=== PATIENT | female | born 1935 | race Caucasian/White ===

== ENCOUNTER 2019-11-22 12:26 | Inpatient (IN) | payer OTHER ==
[2019-11-22 12:52] VITALS: BMI 28.3
--- NOTE | 2019-11-22 13:12 | PDOC ---
History of Present Illness - General Chief Complaint: Injury Stated Complaint: INJURY Time Seen by Provider: 11/22/19 13:05 History Source: Patient Exam Limitations: No Limitations - History of Present Illness Initial Comments: HPI: 84 y/o F on aspirin coming in via EMS from a senior care home s/p fall. According to the patient she was in her home ambulating with her walker and trying to kill a ramirez. The walker got caught and fell over, and she fell on her R. hip. She was able to sit up and call for help. Patient denies that she hit her head, or had LOC. Denies proceeding chest pain, dizziness, or SOB. ROS: (+) Right hip pain (-): Chest pain, palpitations, SOB, headache, blurry vision, neck pain, bruising PMH: NIDDM, HTN Allergies: Phenobarbital PE: General: Patient is awake, alert, in no acute distress Head: No signs of trauma, normocephalic, atraumatic Heart: RRR, capillary reflex < 3 seconds bilaterally, dorsalis pedis pulses 1+ bilaterally. Lungs: No distress, speaks in full sentences, bilateral crackles at lung bases Neuro: Sensation intact in bilateral lower extremities. Extremities: Tenderness to palpation of right lateral hip, R leg shortened and externally rotated. Bilateral lower extremity edema L>R. MDM: 84 y/o female coming in after a mechanical fall on her right hip. Patient was not able to be ruled out for head injury using the [place] Head CT criteria given her age, so a decision was made for a head CT and C Spine. Scans came back clear. Given the high likelihood of a hip fracture, CBC, CMP, coags were drawn and patient was made NPO. CBC showed increased white count at 16k, but no signs of infection. Patient stated pain was mild so a one time dose of IV tylenol was given. Pain increased after CT, and then controlled with Morphine. X-ray of right hip showed intertrochanteric fracture Spoke with Dr. Vergara who stated the surgery can probably be done tomorrow. 11/22/19 23:09 Past History - Medical History Allergies/Adverse Reactions: Allergies Allergy/AdvReac Type Severity Reaction Status Date / Time phenobarbital Allergy Verified 11/22/19 12:42 Home Medications: Ambulatory Orders Amlodipine/Atorvastatin [Amlodipine-Atorvast 10-20 mg] 1 tab PO DAILY 11/22/19 Aspirin 81 mg PO DAILY 11/22/19 Calcium Carbonate [Calcium] 600 mg PO DAILY 11/22/19 Clonidine HCl 0.1 mg PO DAILY 11/22/19 Clonidine HCl 0.2 mg PO HS 11/22/19 Exenatide [Byetta [Non-Formulary]] 20 mcg SQ DAILY 11/22/19 Furosemide 60 mg PO BID 11/22/19 Glipizide [Glipizide Xl] 2.5 mg PO DAILY 11/22/19 Metoprolol Succinate 50 mg PO BID 11/22/19 Multivit-Min/FA/Lycopen/Lutein [Centrum Silver Tablet] 1 tab PO DAILY 11/22/19 [place]-3 Fatty Acids [[place]-3] 2,000 mg PO DAILY 11/22/19 Pioglitazone HCl 30 mg PO DAILY 11/22/19 Simvastatin 20 mg PO HS 11/22/19 COPD: No Diabetes: Yes (NIDDM) HTN: Yes - Psycho-Social/Smoking History Smoking History: Never smoked - Substance Abuse Hx (Audit-C & DAST Scrn) How often the patient has a drink containing alcohol: Never Score: In Men: 4 or > Positive; In Women: 3 or > Positive: 0 Screen Result (Pos requires Nsg. Audit-10AR): Negative In the last yr the pt used illegal drug/Rx for NonMed reason: No Score: Yes response is considered Positive: 0 Screen Result (Positive result requires Nsg. DAST-10): Negative *Physical Exam - Vital Signs Last Vital Signs Temp Pulse Resp BP Pulse Ox 98.4 F 75 20 145/66 99 11/22/19 12:44 11/22/19 12:44 11/22/19 12:44 11/22/19 12:44 11/22/19 12:44 Heart Score/ECG Review - ECG Intrepretation Comment:: Sinus rhythm with 1st degree AV block, with occasional premature ventricular complexes 11/22/19 18:13 ED Treatment Course - LABORATORY CBC & Chemistry Diagram: 11/22/19 13:55 11/22/19 13:55 Discharge - Discharge Information Problems reviewed: Yes Clinical Impression/Diagnosis: Hip fracture requiring operative repair Condition: Stable - Admission Yes - Follow up/Referral - Patient Discharge Instructions - Post Discharge Activity
[2019-11-22] MEDS ORDERED: ACETAMINOPHEN 1000 MG/100 ML VIAL (NON FORMULARY) IVPB ONE (13:34)
[2019-11-22 14:06] LABS: BASO % 0.8 % (0-2.0); HEMOGLOBIN 10.9 GM/dL (10.7-15.3); LYMPH % 7.9 % (8-40); MCH 28.1 pg (25.7-33.7); MCHC 32.1 g/dl (32.0-36.0); MEAN CELL VOLUME 87.6 fl (80-96); MEAN PLT VOLUME 7.8 fl (7.5-11.1); MONO % 6.4 % (3.8-10.2); NEUT % 82.9 % (42.8-82.8); PLATELET COUNT 400 K/MM3 (134-434); RBC 3.88 M/mm3 (3.60-5.2); RDW 16.6 % (11.6-15.6)
--- NOTE | 2019-11-22 14:07 | PDOC ---
Documentation entered by Kerrie Malone SCRIBE, acting as scribe for Chantelle Munguia MD. Chantelle Munguia MD: This documentation has been prepared by the Kira frazier Xhesika, SCRIBE, under my direction and personally reviewed by me in its entirety. I confirm that the documentation accurately reflects all work, treatment, procedures, and medical decision making performed by me. Attending Attestation - Resident Resident Name: Buffy Moore - ED Attending Attestation I have performed the following: I have examined & evaluated the patient, The case was reviewed & discussed with the resident, I agree w/resident's findings & plan, Exceptions are as noted - HPI HPI: 11/22/19 13:12 The patient is a 84y/o F with a PMH of NIDDM and HTN, who presents to the ED BIBA from [facility] s/p fall.Pt states she was ambulating wiht a walker trying to kill a ramirez, the walker got caught and patient fell on her R hip. Pt states she was able to sit up after the incident. Pt denies hitting her head or LOC. The patient denies chest pain, shortness of breath, headache and dizziness. Denies fever, chills, cough, nausea, vomiting, diarrhea and constipation. Denies dysuria, frequency, urgency and hematuria. Denies any a/c use but states takes a daily asa. Allergies: phenobarbital - Physicial Exam PE: 11/22/19 14:04 General: well appearing, NAD HEENT: NCAT Extremities: +DP pulses, RLE shortened and externally rotated, ROM at R hip limited, ROM L hip intact, dorsiflexion/plantarflexion 5/5 b/l, sensation intact to light touch, +ttp near R hip, no R knee tenderness or joint instability Neuro: Aox3, speech fluent, face symmetric, unable to assess gait, answers questions appropriately, no focal deficits - Medical Decision Making 11/22/19 14:06 84 yo F with possible R IT fx s/p mechanical fall, neurologically intact. Plan: -labs -cxr -pelvis xray -CT head -CT c-spine -pain control as needed -ortho consult -admit This clinical encounter is taking place during a federal and state health care emergency attributable to the novel [place]line Virus pandemic. The [place] of the Department of Health and Human Services has declared, pursuant to the Public Health Service Act 319F-3 (42 U.S.C. 247d-6d), that a covered persons activities related to medical countermeasures against COVID-19 will be immune from liability under Federal and State law. Discharge - Discharge Information Problems reviewed: Yes Clinical Impression/Diagnosis: Hip fracture requiring operative repair Condition: Good Disposition: HOME - Follow up/Referral - Patient Discharge Instructions - Post Discharge Activity
[2019-11-22 14:13] LABS: INR 1.23 (0.83-1.09); PROTHROMBIN TIME (PATIENT) 14.5 SEC (9.7-13.0)
[2019-11-22 14:15] LABS: ACTIVATED PTT 35.7 SECONDS (25.2-36.5)
[2019-11-22 14:35] LABS: ALBUMIN 3.7 g/dl (3.4-5.0); BILIRUBIN,TOTAL 0.3 mg/dL (0.2-1); BLOOD UREA NITROGEN 36.7 mg/dL (7-18); CALCIUM 9.4 mg/dL (8.5-10.1); CREATININE 1.5 mg/dL (0.55-1.3); POTASSIUM 3.9 mmol/L (3.5-5.1); TOT PROT 7.5 g/dl (6.4-8.2)
[2019-11-22] MEDS ORDERED: ACETAMINOPHEN INJECTION 100 ML IVPB ONE (14:37)
[2019-11-22] MEDS ORDERED: morphine CARPU-JECT 2 MG/1 ML DISP.SYRIN IVPUSH ONE (15:44)
[2019-11-22] MEDS ORDERED: MORPHINE SULFATE 2 MG/ML VIAL ONE (15:56)
--- NOTE | 2019-11-22 17:02 | HP ---
CHIEF COMPLAINT: Fall in the home PCP: Doctors cushion gum applicator HISTORY OF PRESENT ILLNESS: 84 y/o F coming in via EMS from [facility] s/p fall. According to the patient she was in her home ambulating with her walker and trying to kill a ramirez. The walker got caught and fell over, and she fell on her R. hip. She was able to sit up and call for help. Patient denies that she hit her head, or had LOC. Denies proceeding chest pain, dizziness, or SOB. ER course was notable for: (1)Fall in the home (2)Fracture right hip (3) Recent Travel:No travel PAST MEDICAL HISTORY:Diabetes, hypertension, hyperlipidemia PAST SURGICAL HISTORY:She not sure but she may have a gallbladder and hysterectomy Social History:No smoking alcohol drug use Smoking: Alcohol: Drugs: Allergies phenobarbital Allergy (Verified 11/22/19 12:42) Family history, Not significant HOME MEDICATIONS: Home Medications Medication Instructions Recorded Amlodipine/Atorvastatin 1 tab PO DAILY 11/22/19 [Amlodipine-Atorvast 10-20 mg] Aspirin 81 mg PO DAILY 11/22/19 Calcium Carbonate [Calcium] 600 mg PO DAILY 11/22/19 Clonidine HCl 0.1 mg PO DAILY 11/22/19 Clonidine HCl 0.2 mg PO HS 11/22/19 Exenatide [Byetta [Non-Formulary]] 20 mcg SQ DAILY 11/22/19 Metoprolol Succinate 50 mg PO DAILY 11/22/19 Multivit-Min/FA/Lycopen/Lutein 1 tab PO DAILY 11/22/19 [Centrum Silver Tablet] [place]-3 Fatty Acids [[place]-3] 2,000 mg PO DAILY 11/22/19 Pioglitazone HCl 30 mg PO DAILY 11/22/19 Simvastatin 20 mg PO HS 11/22/19 REVIEW OF SYSTEMS CONSTITUTIONAL: Absent: fever, chills, diaphoresis, generalized weakness, malaise, loss of appetite, weight change HEENT: Absent: rhinorrhea, nasal congestion, throat pain, throat swelling, difficulty swallowing, mouth swelling, ear pain, eye pain, visual changes CARDIOVASCULAR: Absent: chest pain, syncope, palpitations, irregular heart rate, lightheadedness, peripheral edema RESPIRATORY: Absent: cough, shortness of breath, dyspnea with exertion, orthopnea, wheezing, stridor, hemoptysis GASTROINTESTINAL: Absent: abdominal pain, abdominal distension, nausea, vomiting, diarrhea, constipation, melena, hematochezia GENITOURINARY: Absent: dysuria, frequency, urgency, hesitancy, hematuria, flank pain, genital pain MUSCULOSKELETAL: Pain in the right hip SKIN: Absent: rash, itching, pallor HEMATOLOGIC/IMMUNOLOGIC: Absent: easy bleeding, easy bruising, lymphadenopathy, frequent infections ENDOCRINE: Absent: unexplained weight gain, unexplained weight loss, heat intolerance, cold intolerance NEUROLOGIC: Absent: headache, focal weakness or paresthesias, dizziness, unsteady gait, seizure, mental status changes, bladder or bowel incontinence PSYCHIATRIC: Absent: anxiety, depression, suicidal or homicidal ideation, hallucinations. PHYSICAL EXAMINATION Vital Signs - 24 hr 11/22/19 12:44 Temperature 98.4 F Pulse Rate 75 Respiratory 20 Rate Blood Pressure 145/66 O2 Sat by Pulse 99 Oximetry (%) GENERAL: Awake, alert, and fully oriented, in no acute distress. HEAD: Normal with no signs of trauma. EYES: Pupils equal, round and reactive to light, extraocular movements intact, sclera anicteric, conjunctiva clear. No lid lag. EARS, NOSE, THROAT: Ears normal, nares patent, oropharynx clear without exudates. Moist mucous membranes. NECK: Normal range of motion, supple without lymphadenopathy, JVD, or masses. LUNGS: Breath sounds equal, clear to auscultation bilaterally. No wheezes, and no crackles. No accessory muscle use. HEART: Regular rate and rhythm, normal S1 and S2 without murmur, rub or gallop. ABDOMEN: Soft, nontender, not distended, normoactive bowel sounds, no guarding, no rebound, no masses. No hepatomegaly or splenomegaly. MUSCULOSKELETAL: Normal range of motion at all joints. No bony deformities or tenderness. No CVA tenderness. UPPER EXTREMITIES: 2+ pulses, warm, well-perfused. No cyanosis. No clubbing. No peripheral edema. LOWER EXTREMITIES: 2+ pulses, warm, well-perfused. No calf tenderness. No peripheral edema. NEUROLOGICAL: Cranial nerves II-XII intact. Normal speech. Normal gait. PSYCHIATRIC: Cooperative. Good eye contact. Appropriate mood and affect. SKIN: Warm, dry, normal turgor, no rashes or lesions noted, normal capillary refill. Laboratory Results - last 24 hr 11/22/19 11/22/19 11/22/19 13:55 13:55 13:55 WBC 16.0 H RBC 3.88 Hgb 10.9 Hct 34.0 MCV 87.6 MCH 28.1 MCHC 32.1 RDW 16.6 H Plt Count 400 MPV 7.8 Absolute Neuts (auto) 13.3 H Neutrophils % 82.9 H Lymphocytes % 7.9 L Monocytes % 6.4 Eosinophils % 2.0 Basophils % 0.8 Nucleated RBC % 0 PT with INR 14.50 H INR 1.23 H PTT (Actin FS) 35.7 Sodium 139 Potassium 3.9 Chloride 100 Carbon Dioxide 32 Anion Gap 6 L BUN 36.7 H Creatinine 1.5 H Est GFR (CKD-EPI)AfAm 36.95 Est GFR (CKD-EPI)NonAf 31.88 Random Glucose 169 H Calcium 9.4 Total Bilirubin 0.3 AST 19 ALT 14 Alkaline Phosphatase 94 Total Protein 7.5 Albumin 3.7 Blood Type Antibody Screen 11/22/19 13:55 WBC RBC Hgb Hct MCV MCH MCHC RDW Plt Count MPV Absolute Neuts (auto) Neutrophils % Lymphocytes % Monocytes % Eosinophils % Basophils % Nucleated RBC % PT with INR INR PTT (Actin FS) Sodium Potassium Chloride Carbon Dioxide Anion Gap BUN Creatinine Est GFR (CKD-EPI)AfAm Est GFR (CKD-EPI)NonAf Random Glucose Calcium Total Bilirubin AST ALT Alkaline Phosphatase Total Protein Albumin Blood Type O POSITIVE Antibody Screen Negative Her chest x-ray is clear EKG normal sinus rhythm with frequent PVC. ASSESSMENT/PLAN: 84 y/o F coming in via EMS from [facility] s/p fall.And x-ray confirmed that she has a fracture of the hip Orthopedic consult for possible repair.Orthopedic consult for possible repair. Family in detail. Diabetes we will put her on insulin coverage N.p.o. for now. Hypertension restart medication clonidine and metoprolol Atorvastatin For high cholesterol. Patient is medically has multiple risk factor for surgery. Discussed with the patient and the family in detail about the need for surgery. So patient will go for surgery under the umbrella of risk factors. Visit type - Emergency Visit Emergency Visit: Yes ED Registration Date: 11/22/19 Care time: The patient presented to the Emergency Department on the above date and was hospitalized for further evaluation of their emergent condition. - New Patient This patient is new to me today: Yes Date on this admission: 11/22/19 - Critical Care Critical Care patient: No
--- NOTE | 2019-11-22 17:12 | CONSULT ---
Consult - text type - Consultation Consultation Note: ORTHOPEDIC SURGERY CONSULTATION NOTE Department of Orthopedic Surgery HISTORY OF PRESENT ILLNESS Daniela Morrow is an 84 year old female with a PMH significant for HTN and NIDDM admitted to [facility] with right a right hip intertrochanteric fracture after a mechanical fall. The orthopedic service was consulted for further evaluation and treatment of the right hip. The injury occurred today. The patient notes right sided hip pain. Denies any other injuries. Denies numbness, tingling or other constitutional complaints. The patient is retired. Denies tobacco use, drug use, alcohol abuse. The patient lives at [facility] and uses a walker at baseline. Active Problems Problem Status Category Onset Hip fracture requiring operative repair Acute Medical Social History Smoking history Never smoked Allergies Allergy/AdvReac Type Severity Reaction Status Date / Time phenobarbital Allergy Verified 11/22/19 12:42 Active Medications Generic Name Dose Route Start Last Admin Trade Name Freq PRN Reason Stop Dose Admin Clonidine 0.1 mg 11/23/19 10:00 Catapres - PO DAILY CARMEN Metoprolol Succinate 50 mg 11/23/19 10:00 Toprol Xl - PO DAILY CARMEN Non-Formulary Medication 1 tab 11/23/19 10:00 Amlodipine/Atorvastatin [Amlodipine-Atorvast 10-20 Mg] PO DAILY CARMEN Non-Formulary Medication 0.2 mg 11/22/19 22:00 Clonidine Hcl [Clonidine Hcl] PO HS CARMEN Non-Formulary Medication 20 mg 11/22/19 22:00 Simvastatin [Simvastatin] PO HS CARMEN Non-Formulary Medication 2,000 mg 11/23/19 10:00 [place]-3 Fatty Acids [[place]-3] PO DAILY CARMEN Non-Formulary Medication 20 mcg 11/23/19 10:00 Exenatide SQ DAILY CARMEN Pioglitazone HCl 30 mg 11/23/19 10:00 Actos - PO DAILY [facility] Vital Signs (last) Temp Pulse Resp BP Pulse Ox 98.4 F 75 20 145/66 99 11/22/19 12:44 11/22/19 12:44 11/22/19 12:44 11/22/19 12:44 11/22/19 12:44 Intake and Output 11/20/19 11/21/19 11/22/19 23:59 23:59 23:59 Intake Total 100 Balance 100 Intake: IVPB 100 Other: Weight 160 lb Height 5 ft 3 in Body Mass Index (BMI) 28.3 Weight Measurement Method Est/Stated by Patient Laboratory 11/22/19 13:55 11/22/19 13:55 PT with INR 14.50 SEC (9.7-13.0) H 11/22/19 13:55 PTT (Actin FS) 35.7 SECONDS (25.2-36.5) 11/22/19 13:55 FAMILY HISTORY Reviewed and noncontributory. REVIEW OF SYMPTOMS A twelve-point review of systems was performed and was negative except as noted in HPI. PHYSICAL EXAM Constitutional: Alert and oriented to person, place, and time. Appears well- developed and well-nourished. No acute distress, appropriate mood and affect. HEENT: Normocephalic, atraumatic Cardiovascular: Regular rate and rhythm, extremities warm, no cyanosis. Pulmonary: Breathing comfortably, normal air movement, no audible wheezing. Right Upper Extremity: No tenderness to palpation. Full passive and active ROM, free from pain. Left Upper Extremity: No tenderness to palpation. Full passive and active ROM, free from pain. Right Lower Extremity: Extremity is shortened and externally rotated. Skin warm, dry, and intact; no lesions, rashes or ulcers noted. Muscle mass equal and symmetric to contralateral side. No atrophy noted. No masses or effusions noted. + log roll. Unable to SLR; nontender throughout rest of extremity. No cords or calf tenderness. No significant calf/ankle edema. Full passive and active ROM, free from pain. Joints stable with no pathologic laxity. EHL/TA/GS motor intact; SILT distally; 2+ DP pulses; Cap refill brisk. Tone and reflexes normal. Left Lower Extremity: Skin warm, dry, and intact; no lesions, rashes or ulcers noted. Muscle mass equal and symmetric to contralateral side. No atrophy noted. No masses or effusions noted. No tenderness to palpation. No cords or calf tenderness. No significant calf/ankle edema. Full passive and active ROM, free from pain. Joints stable with no pathologic laxity. EHL/TA/GS motor intact; SILT distally; 2+ DP pulses; Cap refill brisk. Tone and reflexes normal. IMAGING I personally reviewed all radiographs, CT, and other imaging. Radiographs of the right hip demonstrate a right sided displaced intertrochanteric hip fracture. CT of the cervical spine shows cervical spondylosis with no fracture or dislocation. ASSESSMENT AND PLAN Daniela Morrow is an 84 year old female presenting status post mechanical fall with a right sided intertrochanteric hip fracture. We have reviewed the imaging and clinical findings in detail, as well as their potential implications. This is an operative fracture. Plan for right hip intramedullary nail tomorrow AM. Will need medical clearance NPO after midnight except meds Heparin 5000 units x 1 dose tonight; hold anticoagulation past midnight Flores to gravity NWB RLE Type and Screen/2 units PRBC on hold LR 84cc/hr UA All questions were answered. Thank you for involving our team in the care of this patient. Please call us at [phone] with questions
[2019-11-22] MEDS ORDERED: HEPARIN NA (PORCINE) 5,000 UNITS/ML 1ML VIAL SQ ONE (17:16)
[2019-11-22] MEDS ORDERED: HEPARIN NA (PORCINE) 5,000 UNITS/ML 1ML VIAL ONE (17:26)
[2019-11-22] MEDS ORDERED: SODIUM CHLORIDE 0.45% 1,000 ML IV SCH (17:30)
[2019-11-22] MEDS ORDERED: LACTATED RINGERS SOLUTION 1,000 ML/1,000 ML INFUS.BAG IV SCH (18:45)
[2019-11-22 18:53] LABS: EPI CELLS 30 /uL (0-25.1); HYALINE CASTS 1 /uL (0-3.1); URINE APPEARANCE CLOUDY; URINE BILIRUBIN NEGATIVE (NEGATIVE); URINE COLOR YELLOW; URINE GLUCOSE (UA) NEGATIVE (NEGATIVE); URINE KETONE NEGATIVE (NEGATIVE); URINE LEUK ESTERASE NEGATIVE (NEGATIVE); URINE NITRITE POSITIVE (NEGATIVE); URINE PROTEIN NEGATIVE (NEGATIVE); URINE RBC 8 /uL (0-23.9); URINE UROBILINOGEN 0.2 mg/dL (0.2-1.0); URINE WBC 6 /uL (0-25.8)
[2019-11-22] MEDS ORDERED: CEFTRIAXONE 1 GM in DEXTROSE 5%-WATER - 100 ML IVPB ONE (21:26)
[2019-11-22] MEDS ORDERED: ATORVASTATIN CA 20 MG TABLET (FP) ONE (21:48)
[2019-11-22] MEDS ORDERED: cloNIDine HCL 0.1 MG TABLET ONE (21:49)
[2019-11-22] MEDS ORDERED: CEFTRIAXONE 1 GM/50 ML BAG ONE (21:49)
[2019-11-22] MEDS ORDERED: ATORVASTATIN CA 10 MG TABLET (FP) PO SCH (22:00)
[2019-11-22] MEDS ORDERED: cloNIDine HCL 0.1 MG TABLET PO SCH (22:00)
[2019-11-22] MEDS ORDERED: PATIENT'S OWN MEDICATION (NON-FORMULARY) (Clonidine Hcl [Clonidine Hcl] 0.2 MG) PO SCH (22:00)
[2019-11-22] MEDS ORDERED: PATIENT'S OWN MEDICATION (NON-FORMULARY) (Simvastatin [Simvastatin] 20 MG) PO SCH (22:00)
[2019-11-22] MEDS ORDERED: ATORVASTATIN CA 20 MG TABLET (FP) PO SCH (22:00)
[2019-11-22] MEDS ORDERED: HEPARIN NA (PORCINE) 5,000 UNITS/ML 1ML VIAL SQ SCH (22:00)
[2019-11-23] MEDS ORDERED: ACETAMINOPHEN 325 MG TABLET (FP) PO ONE (03:49)
[2019-11-23] MEDS ORDERED: LIRAGLUTIDE 0.6 MG/0.1 ML PEN.INJCTR SQ SCH (07:00)
[2019-11-23] MEDS ORDERED: PIOGLITAZONE HCL 30 MG TABLET PO SCH (07:00)
--- NOTE | 2019-11-23 07:16 | PN ---
Progress Note (short form) - Note Progress Note: ORTHOPEDIC SURGERY PROGRESS NOTE Department of Orthopedic Surgery SUBJECTIVE No acute events overnight. No complaints currently. Denies chest pain, shortness of breath, or calf pain. No nausea or vomiting. Tolerating oral intake. Pain control difficult overnight. PHYSICAL EXAMINATION General: Alert, oriented, cooperative and no distress. Lower Extremity: Extremity shortened and ER. Skin intact, no lesions, rashes or ulcers noted. Muscle mass equal and symmetric to contralateral side. No atrophy noted. No masses or effusions noted. EHL/TA/GS motor intact; SILT distally; 2+ DP pulses; Cap refill brisk. DVT Exam: No evidence of DVT seen on physical exam; No cords or calf tenderness; No significant calf/ankle edema. Intake & Output 11/21/19 11/22/19 11/23/19 23:59 23:59 23:59 Intake Total 100 120 Output Total 1800 Balance 100 -1680 Intake: IVPB 100 Oral 120 Output: Urine 1800 Void 1800 Other: Bowel Movement No Weight 160 lb Height 5 ft 3 in Body Mass Index (BMI) 28.3 Weight Measurement Method Estimated by Patient Weight Measurement Method Est/Stated by Patient Active Medications Generic Name Dose Route Start Last Admin Trade Name Freq PRN Reason Stop Dose Admin Amlodipine Besylate 10 mg 11/23/19 10:00 Norvasc - PO DAILY CARMEN Atorvastatin Calcium 20 mg 11/22/19 22:00 11/22/19 21:36 Lipitor - PO 20 mg HS CARMEN Administration Clonidine 0.2 mg 11/22/19 22:00 11/22/19 21:36 Catapres - PO 0.2 mg HS CARMEN Administration Liraglutide 1.8 mg 11/23/19 07:00 11/23/19 06:22 Victoza - SQ Not Given DAILY@0700 CARMEN Metoprolol Succinate 50 mg 11/23/19 10:00 Toprol Xl - PO DAILY CARMEN Ilioz-5-Lqzu Ethyl Esters 2 gm 11/23/19 10:00 Lovaza - PO DAILY CARMEN Pioglitazone HCl 30 mg 11/23/19 07:00 11/23/19 06:21 Actos - PO Not Given ACBK CARMEN Vital Signs (last) Temp Pulse Resp BP Pulse Ox 97.9 F 76 19 140/77 95 11/23/19 05:24 11/23/19 05:24 11/23/19 05:24 11/23/19 05:24 11/22/19 23:21 Laboratory (coagulation) PT with INR 14.50 SEC (9.7-13.0) H 11/22/19 13:55 Laboratory 11/22/19 13:55 11/22/19 13:55 Daniela Morrow is an 84 year old female presenting status post mechanical fall with a right sided intertrochanteric hip fracture. We have Plan for right hip intramedullary nail this morning. Medical clearance appreciated. NPO after midnight except meds Flores to gravity NWB RLE Type and Screen/2 units PRBC on hold LR 84cc/hr UA positive - being treated with Ceftriaxone; Urine culture pending
[2019-11-23] MEDS ORDERED: BUPIVACAINE HCL/PF 0.25% (2.5MG/ML) 10 ML VIAL ONE (09:18)
[2019-11-23] MEDS ORDERED: PROPOFOL 20 ML ONE ×3 (09:20)
[2019-11-23] MEDS ORDERED: LIDOCAINE HCL 1%, 10 MG/ML (20ML VIAL) ONE (09:28)
[2019-11-23] MEDS ORDERED: OMEGA PO SCH (10:00)
[2019-11-23] MEDS ORDERED: amLODIPine BESYLATE 10 MG TABLET (FP) PO SCH (10:00)
[2019-11-23] MEDS ORDERED: OMEGA-3 ACID ETHYL ESTERS (FATTY-ACIDS) 1 GM CAPSULE (FP) PO SCH (10:00)
[2019-11-23] MEDS ORDERED: FATTY ACIDS PO SCH (10:00)
[2019-11-23] MEDS ORDERED: PATIENT'S OWN MEDICATION (NON-FORMULARY) (Amlodipine/Atorvastatin [Amlodipine-Atorvast 10- PO SCH (10:00)
[2019-11-23] MEDS ORDERED: EXENATIDE SQ SCH (10:00)
[2019-11-23] MEDS ORDERED: cloNIDine HCL 0.1 MG TABLET PO SCH (10:00)
[2019-11-23] MEDS ORDERED: ceFAZolin SODIUM 1 GM VIAL IVPB ONE (10:06)
--- NOTE | 2019-11-23 11:40 | OPR ---
TITLE OF OPERATION: Right hip cephalomedullary nail fixation (CPT 75864) PREOPERATIVE DIAGNOSIS: Right intertrochanteric hip fracture POSTOPERATIVE DIAGNOSIS: Right intertrochanteric hip fracture SURGEON: Yariel Vergara DO AUTHORIZER: Mekhi Fishman DO ANESTHESIA: General anesthesia SPECIMEN (BACTERIOLOGICAL, PATHOLOGICAL OR OTHER): None PROSTHETIC DEVICE/IMPLANT: 125 degree x 11 mm x 180 mm Dinuba Gamma nail 90 mm lag screw 37.5 mm locking screw COMPLICATIONS: none EBL:50 mL INDICATIONS FOR SURGERY: Daniela Morrow is an 84 year old female who presented with a right int ertrochanteric hip fracture. Based on their pre-injury level of activity, surgical treatment was discussed. The risks and benefits of surgery and anesthesia were discussed in detail including but not limited to pain, bleeding, infection, scarring, damage to vessels and nerves, failure to obtain the desired result, failure to heal, failure to return to sport. Understanding the risks and benefits, he opted to proceed with surgical management. SURGEON'S NARRATIVE: Daniela Morrow was seen in the preoperative area. Their right side was marked for surgery and consent was reviewed and signed. She was then brought back to the operating room. She was transferred to the OR table. All bony prominences were well padded. A time-out was held and all team members agreed on the operative side and planned procedure. Anesthesia was then induced. Preoperative prophylactic antibiotics were indicated and Ancef was given prior to and within one hour of any incision. Sequential compression devices were placed on the contralateral extremity for the duration of the case as part of a comprehensive DVT prophylaxis protocol consisting of intraoperative SCDs, early postoperative mobilization and Lovenox for chemoprophylaxis. Under fluoroscopy, the fracture was reduced by traction and internal rotation with slight adduction. After reduction was achieved, the hip was prepped and draped in the usual sterile fashion with application of a shower curtain. A small incision was made over directly over the proximal aspect of the hip, centered over just proximal to the prominence of the tip of the greater trochanter. This was done using a 10 blade. It was carried through the skin and subcutaneous tissues. Further dissection was performed using the Pop scissors. The guide pin for the Gamma Nail System was then inserted from the tip of the greater trochanter and into the proximal femoral canal. The opening reamer was then placed over the guidepin and used to make an opening in the proximal femur. The guidepin was then removed. A 125-degree x 11mm x 180mm gamma nail was selected. The Gamma Nail was inserted into the femoral canal into its appropriate position. Using the proximal targeting device, a 1.5-cm longitudinal incision was made directly over the lateral aspect of the proximal thigh using the 10 blade, with dissection using the hemostat to the lateral femur. A guidepin for the lag screw was then inserted from the lateral femur across the fracture site and into the femoral head and its appropriate position verified using C-arm guidance in both the AP and lateral planes. After pre-drilling, a 90-mm lag screw was then inserted over the guidepin and across the fracture site for definitive fixation. The guidepin was then removed. A set screw was then inserted into the top of the nail and completed turned, then turned back a half turn. The fracture site was appropriately compressed. The proximal targeting system was then removed. Attention was then turned to placing the distal screw. The guide was adjusted and using the 10 blade an incision was made directly over the lateral aspect of the thigh, with dissection using the hemostat to the lateral femur. A guidepin for the distal locking screw was then inserted from the lateral femur across the fracture site and into the femoral shaft and its appropriate position verified using C-arm guidance in both the AP and lateral planes. After pre-drilling, a 37.5-mm locking screw was then inserted. Appropriate position of the interlocking screws, the lag screw, the nail, and the fracture site was verified using C-arm guidance. Attention was then turned to closure. The incisions were copiously irrigated with sterile saline. Deep tissue was closed with 0 vicryl. Subcutaneous closure was achieved with 2-0 vicryl. Skin was closed with jersey. At closure, all needle counts and sponge counts were correct. The toes were warm and well-perfused at the end of the case. She was then awoken and brought to the postoperative recovery room in stable condition. There was no complications immediately apparent. Attestation for exceptional children teacher assistant: Dr. Mekhi Fishman acted as the exceptional children teacher assistant. No resident was available to assist in this case. POSTOPERATIVE PLAN - Weightbearing as tolerated - Pain control with oxycodone and tylenol - Postoperative antibiotics - Comprehensive DVT prophylaxis consists of intraoperative SCDs, early postoperative mobilization and lovenox for chemoprophylaxis. Continue lovenox for 35 days postoperatively. - Follow-up as an outpatient in 2 weeks for wound check and x-rays.
[2019-11-23] MEDS ORDERED: oxyCODONE HCL 5 MG TABLET PO PRN (11:43)
[2019-11-23] MEDS ORDERED: ACETAMINOPHEN 1000 MG/100 ML VIAL (NON FORMULARY) IVPB ONE (11:48)
[2019-11-23] MEDS: ONDANSETRON 4 MG/2 ML VIAL IVPUSH PRN ×2 (12:09→19:36)
[2019-11-23] MEDS ORDERED: ONDANSETRON 4 MG/2 ML VIAL ONE (12:09)
[2019-11-23 12:31] LABS: HEMATOCRIT 30.9 % (32.4-45.2); HEMOGLOBIN 10.1 GM/dL (10.7-15.3); MCH 28.9 pg (25.7-33.7); MCHC 32.6 g/dl (32.0-36.0); MEAN CELL VOLUME 88.7 fl (80-96); MEAN PLT VOLUME 8.3 fl (7.5-11.1); PLATELET COUNT 339 K/MM3 (134-434); RBC 3.49 M/mm3 (3.60-5.2); RDW 16.9 % (11.6-15.6); WHITE BLOOD COUNT 14.2 K/mm3 (4.0-10.0)
[2019-11-23] MEDS ORDERED: ACETAMINOPHEN INJECTION 100 ML IVPB ONE (12:32)
[2019-11-23 13:11] LABS: BLOOD UREA NITROGEN 24.9 mg/dL (7-18); CALCIUM 8.5 mg/dL (8.5-10.1); CREATININE 1.1 mg/dL (0.55-1.3)
[2019-11-23] MEDS: LACTATED RINGERS SOLUTION 1,000 ML IV SCH (13:15)
[2019-11-23 14:58] LABS: ANISOCYTOSIS 0; MACROCYTOSIS 0; PLATELET ESTIMATE NORMAL; TARGET CELLS 1+
--- NOTE | 2019-11-23 15:57 | PN ---
Teaching Attending Note Name of Resident: Miguel Aguilar ATTENDING PHYSICIAN STATEMENT I saw and evaluated the patient. I reviewed the resident's note and discussed the case with the resident. I agree with the resident's findings and plan as documented. SUBJECTIVE: Feels well immediately post-op. OBJECTIVE: Afebrile, hemodynamicaly Stable. Appears comfortable. Last Vital Signs Temp Pulse Resp BP Pulse Ox 97.6 F 77 19 143/57 L 100 11/23/19 13:41 11/23/19 13:41 11/23/19 13:41 11/23/19 13:41 11/23/19 13:15 HEENT - Atraumatic, normocephalic. Heart - S1, S2, RRR Lungs - clear to auscultation Abdomen - soft, non-tender. Bowel Sounds normal. Extremities - no edema, R calf tenderness. R hip dressing over surgical site. Neuro - AAO x 3. Tone/Power normal - unable to examine RLE due to post-op state. Laboratory Results - last 24 hr 11/22/19 11/23/19 11/23/19 18:40 05:52 12:20 WBC RBC Hgb Hct MCV MCH MCHC RDW Plt Count MPV Neutrophils % (Manual) Band Neutrophils % Lymphocytes % (Manual) Monocytes % (Manual) Eosinophils % (Manual) Basophils % (Manual) Myelocytes % (Man) Promyelocytes % (Man) Blast Cells % (Manual) Nucleated RBC % Metamyelocytes Hypochromia Platelet Estimate Polychromasia Poikilocytosis Anisocytosis Microcytosis Macrocytosis Target Cells Stomatocytes Sodium 141 Potassium 4.0 Chloride 104 Carbon Dioxide 31 Anion Gap 5 L BUN 24.9 H Creatinine 1.1 Est GFR (CKD-EPI)AfAm 53.77 Est GFR (CKD-EPI)NonAf 46.39 POC Glucometer 104 Random Glucose 135 H Calcium 8.5 Urine Color Yellow Urine Appearance Cloudy Urine pH 5.0 Ur Specific [place] 1.010 Urine Protein Negative Urine Glucose (UA) Negative Urine Ketones Negative Urine Blood Negative Urine Nitrite Positive H Urine Bilirubin Negative Urine Urobilinogen 0.2 Ur Leukocyte Esterase Negative Urine WBC (Auto) 6 Urine RBC (Auto) 8 Urine Casts (Auto) 1 U Epithel Cells (Auto) 30 Urine Bacteria (Auto) >10,000 11/23/19 12:20 WBC 14.2 H RBC 3.49 L Hgb 10.1 L Hct 30.9 L MCV 88.7 MCH 28.9 MCHC 32.6 RDW 16.9 H Plt Count 339 MPV 8.3 Neutrophils % (Manual) 78.0 Band Neutrophils % 1.0 Lymphocytes % (Manual) 13.0 Monocytes % (Manual) 6 Eosinophils % (Manual) 1.0 Basophils % (Manual) 0.0 Myelocytes % (Man) 0 Promyelocytes % (Man) 0 Blast Cells % (Manual) 0 Nucleated RBC % 0 Metamyelocytes 1 Hypochromia 1+ Platelet Estimate Normal Polychromasia 1+ Poikilocytosis 1+ Anisocytosis 0 Microcytosis 0 Macrocytosis 0 Target Cells 1+ Stomatocytes 1+ Sodium Potassium Chloride Carbon Dioxide Anion Gap BUN Creatinine Est GFR (CKD-EPI)AfAm Est GFR (CKD-EPI)NonAf POC Glucometer Random Glucose Calcium Urine Color Urine Appearance Urine pH Ur Specific [place] Urine Protein Urine Glucose (UA) Urine Ketones Urine Blood Urine Nitrite Urine Bilirubin Urine Urobilinogen Ur Leukocyte Esterase Urine WBC (Auto) Urine RBC (Auto) Urine Casts (Auto) U Epithel Cells (Auto) Urine Bacteria (Auto) Current Medications Generic Name Dose Route Start Last Admin Trade Name Freq PRN Reason Stop Dose Admin Amlodipine Besylate 10 mg 11/24/19 10:00 Norvasc - PO DAILY [facility] Atorvastatin Calcium 20 mg 11/23/19 22:00 Lipitor - PO HS [facility] Clonidine 0.2 mg 11/23/19 22:00 Catapres - PO HS [facility] Enoxaparin Sodium 40 mg 11/24/19 10:00 Lovenox - SQ DAILY [facility] Lactated Ringer's 1,000 mls @ 75 mls/hr 11/23/19 11:45 11/23/19 13:15 Lactated Ringers Solution IV 0 mls ASDIR CARMEN Administration Cefazolin Sodium/Dextrose 2 gm in 50 mls @ 100 mls/hr 11/23/19 18:00 Ancef 2 Gm Premixed Ivpb - IVPB 11/24/19 10:29 Q8H-IV [facility] Liraglutide 1.8 mg 11/24/19 07:00 Victoza - SQ DAILY@0700 [facility] Metoprolol Succinate 50 mg 11/24/19 10:00 Toprol Xl - PO DAILY [facility] Morphine Sulfate 2 mg 11/23/19 11:49 Morphine Sulfate SQ Q6H PRN PAIN LEVEL 7 - 10 [id number] Ethyl Esters 2 gm 11/24/19 10:00 Lovaza - PO DAILY [facility] Ondansetron HCl 4 mg 11/23/19 11:43 11/23/19 12:09 Zofran Injection IVPUSH 4 mg Q6H PRN Administration NAUSEA AND/OR VOMITING Oxycodone HCl 5 mg 11/23/19 11:49 Roxicodone - PO 11/26/19 11:49 Q4H PRN PAIN LEVEL 1-5 Pioglitazone HCl 30 mg 11/24/19 07:00 Actos - PO ACBK [facility] Home Medications Medication Instructions Recorded Amlodipine/Atorvastatin 1 tab PO DAILY 11/22/19 [Amlodipine-Atorvast 10-20 mg] Aspirin 81 mg PO DAILY 11/22/19 Calcium Carbonate [Calcium] 600 mg PO DAILY 11/22/19 Clonidine HCl 0.1 mg PO DAILY 11/22/19 Clonidine HCl 0.2 mg PO HS 11/22/19 Exenatide [Byetta [Non-Formulary]] 20 mcg SQ DAILY 11/22/19 Furosemide 60 mg PO BID 11/22/19 Glipizide [Glipizide Xl] 2.5 mg PO DAILY 11/22/19 Metoprolol Succinate 50 mg PO BID 11/22/19 Multivit-Min/FA/Lycopen/Lutein 1 tab PO DAILY 11/22/19 [Centrum Silver Tablet] [place]-3 Fatty Acids [[place]-3] 2,000 mg PO DAILY 11/22/19 Pioglitazone HCl 30 mg PO DAILY 11/22/19 Simvastatin 20 mg PO HS 11/22/19 ASSESSMENT AND PLAN: 84 year old female with history of HTN, HLD, DM 2, Chronic Diastolic CHF, presented [place], found to have R Hip fracture. 1. Acute R Hip Fracture Immediately post-op s/p cephalomedullary nail fixation by Ortho Hemodnamically stable H.H Stable. Sylvia-op hydration, DVT Px, PT Incentive Spirometry. Urine Cx pending. Received sylvia-op empiric Abx. 2. HTN - Can resume Norvasc, Clonidine if BP allows 3. HLD - on Statin (on 2 statins on home meds -need verification) 4. DM 2 - Pioglitazone, Byetta, Glipizide held. Maintain on Novolog sliding scale. 5. DINO - pre-renal, resolved with IV hydration. 6. Chronic Diastolic CHF - Lasix held currently in favor of gentle hydration. Will reassess need to resume Lasix in AM DVT Px - Lovenox SQ
[2019-11-23] MEDS: INSULIN SLIDING SCALE (NOVOLOG) 1 VIAL SQ SCH ×2 (17:03→21:18)
[2019-11-23] MEDS ORDERED: PT OWN MED DRAWER 7, Y5N ONE (17:25)
[2019-11-23] MEDS: CEFAZOLIN 2 GM/D5W 2 GM/50 ML ML IVPB SCH (18:18)
--- NOTE | 2019-11-23 18:56 | PN ---
Physical Exam: SUBJECTIVE: Patient for O.R today for Right hip cephalomedullary nail fixation. OBJECTIVE: Vital Signs Period Temp Pulse Resp BP Sys/[place] Pulse Ox Last 24 Hr 97.6 F-98 F 62-88 16-20 129-160/48-77 10-100 Patient in O.R. Unable to examine. Laboratory Results - last 24 hr 11/23/19 11/23/19 11/23/19 05:52 12:20 12:20 WBC 14.2 H RBC 3.49 L Hgb 10.1 L Hct 30.9 L MCV 88.7 MCH 28.9 MCHC 32.6 RDW 16.9 H Plt Count 339 MPV 8.3 Neutrophils % (Manual) 78.0 Band Neutrophils % 1.0 Lymphocytes % (Manual) 13.0 Monocytes % (Manual) 6 Eosinophils % (Manual) 1.0 Basophils % (Manual) 0.0 Myelocytes % (Man) 0 Promyelocytes % (Man) 0 Blast Cells % (Manual) 0 Nucleated RBC % 0 Metamyelocytes 1 Hypochromia 1+ Platelet Estimate Normal Polychromasia 1+ Poikilocytosis 1+ Anisocytosis 0 Microcytosis 0 Macrocytosis 0 Target Cells 1+ Stomatocytes 1+ Sodium 141 Potassium 4.0 Chloride 104 Carbon Dioxide 31 Anion Gap 5 L BUN 24.9 H Creatinine 1.1 Est GFR (CKD-EPI)AfAm 53.77 Est GFR (CKD-EPI)NonAf 46.39 POC Glucometer 104 Random Glucose 135 H Calcium 8.5 11/23/19 17:01 WBC RBC Hgb Hct MCV MCH MCHC RDW Plt Count MPV Neutrophils % (Manual) Band Neutrophils % Lymphocytes % (Manual) Monocytes % (Manual) Eosinophils % (Manual) Basophils % (Manual) Myelocytes % (Man) Promyelocytes % (Man) Blast Cells % (Manual) Nucleated RBC % Metamyelocytes Hypochromia Platelet Estimate Polychromasia Poikilocytosis Anisocytosis Microcytosis Macrocytosis Target Cells Stomatocytes Sodium Potassium Chloride Carbon Dioxide Anion Gap BUN Creatinine Est GFR (CKD-EPI)AfAm Est GFR (CKD-EPI)NonAf POC Glucometer 223 Random Glucose Calcium Active Medications Generic Name Dose Route Start Last Admin Trade Name Freq PRN Reason Stop Dose Admin Amlodipine Besylate 10 mg 11/24/19 10:00 Norvasc - PO DAILY [facility] Atorvastatin Calcium 20 mg 07/04/20 22:00 Lipitor - PO HS [facility] Clonidine 0.2 mg 11/23/19 22:00 Catapres - PO HS [facility] Enoxaparin Sodium 40 mg 11/24/19 10:00 Lovenox - SQ DAILY [facility] Lactated Ringer's 1,000 mls @ 75 mls/hr 11/23/19 11:45 11/23/19 13:15 Lactated Ringers Solution IV 0 mls ASDIR CARMEN Administration Cefazolin Sodium/Dextrose 2 gm in 50 mls @ 100 mls/hr 11/23/19 18:00 11/23/19 18:18 Ancef 2 Gm Premixed Ivpb - IVPB 11/24/19 10:29 100 mls/hr Q8H-IV [facility] Administration Insulin Aspart 1 vial 11/23/19 16:30 11/23/19 17:03 Novolog Vial Sliding Scale - SQ 4 units ACHS [facility] Administration Protocol Metoprolol Succinate 50 mg 11/24/19 10:00 Toprol Xl - PO DAILY [facility] Morphine Sulfate 2 mg 11/23/19 11:49 Morphine Sulfate SQ Q6H PRN PAIN LEVEL 7 - 10 [id number]-[id number] Ethyl Esters 2 gm 11/24/19 10:00 Lovaza - PO DAILY [facility] Ondansetron HCl 4 mg 11/23/19 11:43 11/23/19 12:09 Zofran Injection IVPUSH 4 mg Q6H PRN Administration NAUSEA AND/OR VOMITING Oxycodone HCl 5 mg 11/23/19 11:49 Roxicodone - PO 11/26/19 11:49 Q4H PRN PAIN LEVEL 1-5 ASSESSMENT/PLAN: Patient is an 84 year old female with history of HTN, HLD, DM 2, Chronic Diastolic CHF, presented from [place] s/p fall, found to have R Hip fracture. # Right intertrochanteric hip fracture For O.R today with Dr Vergara for cephalomedullary nail fixation by Ortho Hemodnamically stable H.H Stable. Recs per Ortho Incentive Spirometry. Per ortho: Weightbearing as tolerated - Pain control with oxycodone and tylenol - Postoperative antibiotics - Comprehensive DVT prophylaxis consists of intraoperative SCDs, early postoperative mobilization and lovenox for chemoprophylaxis. Continue lovenox for 35 days postoperatively. - Follow-up as an outpatient in 2 weeks for wound check and x-rays. #Hypertension -C/W Norvasc and Clonidine if BP allows # HLD C/w Atorvastatin 20 HS #NIDDM - Pioglitazone, Byetta, Glipizide held. -ISS # DINO - pre-renal, resolved with IV hydration. DVT Px - Lovenox SQ Visit type - Emergency Visit Emergency Visit: Yes ED Registration Date: 11/22/19 Care time: The patient presented to the Emergency Department on the above date and was hospitalized for further evaluation of their emergent condition. - New Patient This patient is new to me today: No - Critical Care Critical Care patient: No - Discharge Referral Referred to [facility] Med P.C.: No ATTENDING PHYSICIAN STATEMENT I saw and evaluated the patient. I reviewed the resident's note and discussed the case with the resident. I agree with the resident's findings and plan as documented. SUBJECTIVE: OBJECTIVE: ASSESSMENT AND PLAN:
[2019-11-23] MEDS: cloNIDine HCL 0.1 MG TABLET PO SCH (21:18)
[2019-11-23] MEDS: ATORVASTATIN CA 20 MG TABLET (FP) PO SCH (21:18)
[2019-11-24] MEDS: CEFAZOLIN 2 GM/D5W 2 GM/50 ML ML IVPB SCH ×2 (01:33→09:27)
[2019-11-24] MEDS: MORPHINE SULFATE 2 MG/ML VIAL SQ PRN ×2 (05:05→10:56)
[2019-11-24] MEDS: LACTATED RINGERS SOLUTION 1,000 ML IV SCH ×2 (05:11→23:32)
[2019-11-24] MEDS: INSULIN SLIDING SCALE (NOVOLOG) 1 VIAL SQ SCH ×4 (06:06→23:10)
[2019-11-24] MEDS ORDERED: LIRAGLUTIDE 0.6 MG/0.1 ML PEN.INJCTR SQ SCH (07:00)
[2019-11-24] MEDS ORDERED: PIOGLITAZONE HCL 30 MG TABLET PO SCH (07:00)
--- NOTE | 2019-11-24 08:42 | PN ---
Progress Note (short form) - Note Progress Note: Post op day#1.S/P Right hp Gamma Nail under GA uneventful.Patient stable.No any anesthesia related problem.Patient DC from the anesthesia care.
[2019-11-24] MEDS: oxyCODONE HCL 5 MG TABLET PO PRN ×3 (09:27→23:34)
[2019-11-24] MEDS: ENOXAPARIN NA (PORCINE) 40 MG/0.4 ML DISP.SYRIN SQ SCH (09:27)
[2019-11-24] MEDS: OMEGA-3 ACID ETHYL ESTERS (FATTY-ACIDS) 1 GM CAPSULE (FP) PO SCH (09:28)
[2019-11-24] MEDS: amLODIPine BESYLATE 10 MG TABLET (FP) PO SCH (09:28)
[2019-11-24 12:41] LABS: BASO % 0.8 % (0-2.0); EOS % 2.9 % (0-4.5); HEMATOCRIT 26.6 % (32.4-45.2); HEMOGLOBIN 8.6 GM/dL (10.7-15.3); MCH 28.8 pg (25.7-33.7); MCHC 32.1 g/dl (32.0-36.0); MEAN CELL VOLUME 89.7 fl (80-96); MEAN PLT VOLUME 8.3 fl (7.5-11.1); MONO % 11.7 % (3.8-10.2); NEUT % 67.6 % (42.8-82.8); PLATELET COUNT 271 K/MM3 (134-434); RBC 2.97 M/mm3 (3.60-5.2); WHITE BLOOD COUNT 10.9 K/mm3 (4.0-10.0)
[2019-11-24 13:04] LABS: ALBUMIN 2.9 g/dl (3.4-5.0); BILIRUBIN,TOTAL 0.3 mg/dL (0.2-1); BLOOD UREA NITROGEN 23.7 mg/dL (7-18); CREATININE 1.2 mg/dL (0.55-1.3); PHOSPHOROUS 2.8 mg/dL (2.5-4.9); POTASSIUM 3.6 mmol/L (3.5-5.1); TOT PROT 6.3 g/dl (6.4-8.2)
--- NOTE | 2019-11-24 14:17 | PN ---
Progress Note (short form) - Note Progress Note: ORTHOPEDIC SURGERY PROGRESS NOTE Department of Orthopedic Surgery SUBJECTIVE No acute events overnight. No complaints currently. Denies chest pain, shortness of breath, or calf pain. No nausea or vomiting. Tolerating oral intake. Pain control improving. PHYSICAL EXAMINATION General: Alert, oriented, cooperative and no distress. Lower Extremity: Dressing intact; Skin intact, no lesions, rashes or ulcers noted. Muscle mass equal and symmetric to contralateral side. No atrophy noted. No masses or effusions noted. No tenderness to palpation. EHL/TA/GS motor intact; SILT distally; 2+ DP pulses; Cap refill brisk. DVT Exam: No evidence of DVT seen on physical exam; No cords or calf tenderness; No significant calf/ankle edema. Intake & Output 11/22/19 11/23/19 11/24/19 23:59 23:59 23:59 Intake Total 100 1910 1190 Output Total 4430 400 Balance 100 -2520 790 Intake: IV 1300 900 Lactated Ringers Solution 300 900 1,000 ml @ 75 mls/hr IV ASDIR CARMEN Rx#:[id number] IVPB 100 100 50 Oral 510 240 Output: Urine 4410 400 [place] 1800 400 Void 2200 Estimated Blood Loss 20 Other: Voiding Method Indwelling Catheter Indwelling Catheter Bowel Movement No No Weight 160 lb Height 5 ft 3 in Body Mass Index (BMI) 28.3 Weight Measurement Method Estimated by Patient Weight Measurement Method Est/Stated by Patient Active Medications Generic Name Dose Route Start Last Admin Trade Name Freq PRN Reason Stop Dose Admin Amlodipine Besylate 10 mg 11/24/19 10:00 11/24/19 09:28 Norvasc - PO 10 mg DAILY [facility] Administration Atorvastatin Calcium 20 mg 11/23/19 22:00 11/23/19 21:18 Lipitor - PO 20 mg HS [facility] Administration Clonidine 0.2 mg 11/23/19 22:00 11/23/19 21:18 Catapres - PO 0.2 mg HS [facility] Administration Enoxaparin Sodium 40 mg 11/24/19 10:00 11/24/19 09:27 Lovenox - SQ 40 mg DAILY [facility] Administration Lactated Ringer's 1,000 mls @ 75 mls/hr 11/23/19 11:45 11/24/19 05:11 Lactated Ringers Solution IV 75 mls/hr ASDIR CARMEN Administration Insulin Aspart 1 vial 11/23/19 16:30 11/24/19 10:57 Novolog Vial Sliding Scale - SQ 2 units ACHS [facility] Administration Protocol Metoprolol Succinate 50 mg 11/24/19 10:00 11/24/19 09:28 Toprol Xl - PO 50 mg DAILY [facility] Administration Morphine Sulfate 2 mg 11/23/19 11:49 11/24/19 10:56 Morphine Sulfate SQ 2 mg Q6H PRN Administration PAIN LEVEL 7 - 10 Jwnrx-4-Bmbb Ethyl Esters 2 gm 11/24/19 10:00 11/24/19 09:28 Lovaza - PO 2 gm DAILY [facility] Administration Oxycodone HCl 5 mg 11/23/19 11:49 11/24/19 09:27 Roxicodone - PO 11/26/19 11:49 5 mg Q4H PRN Administration PAIN LEVEL 1-5 Vital Signs (last) Temp Pulse Resp BP Pulse Ox 98.9 F 89 18 147/64 93 L 11/24/19 10:00 11/24/19 10:00 11/24/19 10:00 11/24/19 10:00 11/24/19 10:00 Laboratory (coagulation) PT with INR 14.50 SEC (9.7-13.0) H 11/22/19 13:55 Laboratory 11/24/19 12:10 11/24/19 12:10 IMAGING Radiographs of the right hip show metal hardware in place with no signs of loosening. ASSESSMENT AND PLAN Daniela Morrow is an 84 year old female status post right hip cephalomedullary nail. POD #1. Doing well. Hemodynamically stable. - FU Venous Doppler - FU UCx - DC Flores - Monitor Labs; transfuse of Hemoglobin <8 or symptomatic - PT/OT - Weightbearing as tolerated - Postoperative antibiotics completed - DVT prophylaxis: SCDs, lovenox for chemoprophylaxis. Continue lovenox for 35 days postoperatively. - Follow-up as an outpatient in 2 weeks for wound check and x-rays. - Pain control: Transition to oral pain medications, minimize narcotic use - Ice/Elevation - Elevate HOB, encourage oral intake - Appreciate medical management (Nutrition optimization, decubitus precautions heel/sacrum)
--- NOTE | 2019-11-24 15:03 | PN ---
Progress Note (short form) - Note Progress Note: SUBJECTIVE: Complains of R calf pain. No fever/chills. No chest pain/p alpitations. Tolerating oral intake, no nausea/vomiting. Passing flatus. OBJECTIVE: Afebrile, hemodynamicaly Stable. Appears comfortable. Last Vital Signs Temp Pulse Resp BP Pulse Ox 98.9 F 89 18 147/64 93 L 11/24/19 10:00 11/24/19 10:00 11/24/19 10:00 11/24/19 10:11/24/19 10:00 Heart - S1, S2, RRR Lungs - clear to auscultation Abdomen - soft, non-tender. Bowel Sounds normal. Extremities - no edema, persisting R calf tenderness. R hip dressing over surgical site. Neuro - AAO x 3. Tone/Power normal - unable to examine RLE due to post-op state. Laboratory Results - last 24 hr 11/22/19 11/23/19 11/23/19 16:16 12:20 17:01 WBC RBC Hgb Hct MCV MCH MCHC RDW Plt Count MPV Absolute Neuts (auto) Neutrophils % Neutrophils % (Manual) 78.0 Band Neutrophils % 1.0 Lymphocytes % Lymphocytes % (Manual) 13.0 Monocytes % Monocytes % (Manual) 6 Eosinophils % Eosinophils % (Manual) 1.0 Basophils % Basophils % (Manual) 0.0 Myelocytes % (Man) 0 Promyelocytes % (Man) 0 Blast Cells % (Manual) 0 Nucleated RBC % 0 Metamyelocytes 1 Hypochromia 1+ Platelet Estimate Normal Polychromasia 1+ Poikilocytosis 1+ Anisocytosis 0 Microcytosis 0 Macrocytosis 0 Target Cells 1+ Stomatocytes 1+ Sodium Potassium Chloride Carbon Dioxide Anion Gap BUN Creatinine Est GFR (CKD-EPI)AfAm Est GFR (CKD-EPI)NonAf POC Glucometer 223 Random Glucose Calcium Phosphorus Magnesium Total Bilirubin AST ALT Alkaline Phosphatase Total Protein Albumin COVID-19 (HARVEY) Not detected 11/23/19 11/24/19 11/24/19 20:54 05:56 10:53 WBC RBC Hgb Hct MCV MCH MCHC RDW Plt Count MPV Absolute Neuts (auto) Neutrophils % Neutrophils % (Manual) Band Neutrophils % Lymphocytes % Lymphocytes % (Manual) Monocytes % Monocytes % (Manual) Eosinophils % Eosinophils % (Manual) Basophils % Basophils % (Manual) Myelocytes % (Man) Promyelocytes % (Man) Blast Cells % (Manual) Nucleated RBC % Metamyelocytes Hypochromia Platelet Estimate Polychromasia Poikilocytosis Anisocytosis Microcytosis Macrocytosis Target Cells Stomatocytes Sodium Potassium Chloride Carbon Dioxide Anion Gap BUN Creatinine Est GFR (CKD-EPI)AfAm Est GFR (CKD-EPI)NonAf POC Glucometer 161 131 158 Random Glucose Calcium Phosphorus Magnesium Total Bilirubin AST ALT Alkaline Phosphatase Total Protein Albumin COVID-19 (HARVEY) 11/24/19 11/24/19 12:10 12:10 WBC 10.9 H RBC 2.97 L Hgb 8.6 L Hct 26.6 L MCV 89.7 MCH 28.8 MCHC 32.1 RDW 17.0 H Plt Count 271 D MPV 8.3 Absolute Neuts (auto) 7.3 Neutrophils % 67.6 Neutrophils % (Manual) Band Neutrophils % Lymphocytes % 17.0 D Lymphocytes % (Manual) Monocytes % 11.7 H D Monocytes % (Manual) Eosinophils % 2.9 Eosinophils % (Manual) Basophils % 0.8 Basophils % (Manual) Myelocytes % (Man) Promyelocytes % (Man) Blast Cells % (Manual) Nucleated RBC % 0 Metamyelocytes Hypochromia Platelet Estimate Polychromasia Poikilocytosis Anisocytosis Microcytosis Macrocytosis Target Cells Stomatocytes Sodium 138 Potassium 3.6 Chloride 102 Carbon Dioxide 28 Anion Gap 7 L BUN 23.7 H Creatinine 1.2 Est GFR (CKD-EPI)AfAm 48.40 Est GFR (CKD-EPI)NonAf 41.76 POC Glucometer Random Glucose 102 Calcium 8.0 L Phosphorus 2.8 Magnesium 2.0 Total Bilirubin 0.3 AST 28 ALT 11 L Alkaline Phosphatase 79 Total Protein 6.3 L Albumin 2.9 L COVID-19 (HARVEY) Current Medications Generic Name Dose Route Start Last Admin Trade Name Freq PRN Reason Stop Dose Admin Amlodipine Besylate 10 mg 11/24/19 10:00 11/24/19 09:28 Norvasc - PO 10 mg DAILY CARMEN Administration Atorvastatin Calcium 20 mg 11/23/19 22:00 11/23/19 21:18 Lipitor - PO 20 mg HS CARMEN Administration Clonidine 0.2 mg 11/23/19 22:00 11/23/19 21:18 Catapres - PO 0.2 mg HS CARMEN Administration Enoxaparin Sodium 40 mg 11/24/19 10:00 11/24/19 09:27 Lovenox - SQ 40 mg DAILY CARMEN Administration Lactated Ringer's 1,000 mls @ 75 mls/hr 11/23/19 11:45 11/24/19 05:11 Lactated Ringers Solution IV 75 mls/hr ASDIR CARMEN Administration Insulin Aspart 1 vial 11/23/19 16:30 11/24/19 10:57 Novolog Vial Sliding Scale - SQ 2 units ACHS CARMEN Administration Protocol Metoprolol Succinate 50 mg 11/24/19 10:00 11/24/19 09:28 Toprol Xl - PO 50 mg DAILY CARMEN Administration Morphine Sulfate 2 mg 11/23/19 11:49 11/24/19 10:56 Morphine Sulfate SQ 2 mg Q6H PRN Administration PAIN LEVEL 7 - 10 Itnyn-8-Zyqe Ethyl Esters 2 gm 11/24/19 10:00 11/24/19 09:28 Lovaza - PO 2 gm DAILY CARMEN Administration Oxycodone HCl 5 mg 11/23/19 11:49 11/24/19 09:27 Roxicodone - PO 11/26/19 11:49 5 mg Q4H PRN Administration PAIN LEVEL 1-5 Home Medications Medication Instructions Recorded Amlodipine/Atorvastatin 1 tab PO DAILY 11/22/19 [Amlodipine-Atorvast 10-20 mg] Aspirin 81 mg PO DAILY 11/22/19 Calcium Carbonate [Calcium] 600 mg PO DAILY 11/22/19 Clonidine HCl 0.1 mg PO DAILY 11/22/19 Clonidine HCl 0.2 mg PO HS 11/22/19 Exenatide [Byetta [Non-Formulary]] 20 mcg SQ DAILY 11/22/19 Furosemide 60 mg PO BID 11/22/19 Glipizide [Glipizide Xl] 2.5 mg PO DAILY 11/22/19 Metoprolol Succinate 50 mg PO BID 11/22/19 Multivit-Min/FA/Lycopen/Lutein 1 tab PO DAILY 11/22/19 [Centrum Silver Tablet] [place]-3 Fatty Acids [[place]-3] 2,000 mg PO DAILY 11/22/19 Pioglitazone HCl 30 mg PO DAILY 11/22/19 Simvastatin 20 mg PO HS 11/22/19 ASSESSMENT AND PLAN: 84 year old female with history of HTN, HLD, DM 2, Chronic Diastolic CHF, presented from [place] s/p fall, found to have R Hip fracture. 1. Acute R Hip Fracture POD 1 s/p cephalomedullary nail fixation by Ortho Hemodnamically stable Drop in H.H post op due to surgery related acute blood loss anemia - will give Ferrous Sulfate and monitor H/H DVT Px - Lovenox for 35 days as per Ortho PT Incentive Spirometry. Urine Cx contaminated, will order repeat (result may be influenced by chely-op empiric Abx). 2. HTN - Resumed on Norvasc, Clonidine if BP allows 3. HLD - on Statin (on 2 statins on home meds - need verification) 4. DM 2 - Pioglitazone, Byetta, Glipizide held. Maintain on Novolog sliding scale. 5. DINO - pre-renal, resolved with IV hydration. Will discontinue IV fluids. 6. Chronic Diastolic CHF - Lasix initially held in favor of gentle hydration. IV fluids discontinued. Will resume Lasix in AM. DVT Px - Lovenox SQ Visit type - Emergency Visit Emergency Visit: Yes ED Registration Date: 11/22/19 Care time: The patient presented to the Emergency Department on the above date and was hospitalized for further evaluation of their emergent condition. - New Patient This patient is new to me today: No - Critical Care Critical Care patient: No - Discharge Referral Referred to [facility] No
[2019-11-24] MEDS: ATORVASTATIN CA 20 MG TABLET (FP) PO SCH (21:41)
[2019-11-24] MEDS: FUROSEMIDE 40 MG TABLET (FP) PO SCH (21:41)
[2019-11-24] MEDS: cloNIDine HCL 0.1 MG TABLET PO SCH (21:42)
[2019-11-25] MEDS: oxyCODONE HCL 5 MG TABLET PO PRN ×2 (05:07→09:27)
[2019-11-25] MEDS: FUROSEMIDE 40 MG TABLET (FP) PO SCH ×2 (05:10→13:48)
[2019-11-25] MEDS: INSULIN SLIDING SCALE (NOVOLOG) 1 VIAL SQ SCH ×4 (06:00→21:56)
[2019-11-25] MEDS: OMEGA-3 ACID ETHYL ESTERS (FATTY-ACIDS) 1 GM CAPSULE (FP) PO SCH (09:27)
[2019-11-25] MEDS: amLODIPine BESYLATE 10 MG TABLET (FP) PO SCH (09:27)
[2019-11-25] MEDS: ENOXAPARIN NA (PORCINE) 40 MG/0.4 ML DISP.SYRIN SQ SCH (09:27)
[2019-11-25] MEDS ORDERED: INSULIN (NOVOLOG) ASPART 100 UNITS/ML 10ML VIAL ONE (11:16)
[2019-11-25 11:35] LABS: BASO % 0.9 % (0-2.0); EOS % 2.3 % (0-4.5); HEMATOCRIT 23.8 % (32.4-45.2); HEMOGLOBIN 7.8 GM/dL (10.7-15.3); LYMPH % 13.9 % (8-40); MCH 29.3 pg (25.7-33.7); MCHC 32.7 g/dl (32.0-36.0); MEAN CELL VOLUME 89.5 fl (80-96); MEAN PLT VOLUME 8.5 fl (7.5-11.1); NEUT % 72.9 % (42.8-82.8); PLATELET COUNT 258 K/MM3 (134-434); RBC 2.66 M/mm3 (3.60-5.2); RDW 16.8 % (11.6-15.6); WHITE BLOOD COUNT 11.1 K/mm3 (4.0-10.0)
[2019-11-25 11:58] LABS: BLOOD UREA NITROGEN 22.1 mg/dL (7-18); CALCIUM 7.9 mg/dL (8.5-10.1); CREATININE 1.2 mg/dL (0.55-1.3); POTASSIUM 3.6 mmol/L (3.5-5.1)
--- NOTE | 2019-11-25 14:09 | PN ---
Progress Note (short form) - Note Progress Note: ORTHOPEDIC SURGERY PROGRESS NOTE Department of Orthopedic Surgery SUBJECTIVE No acute events overnight. No complaints currently. Denies chest pain, shortness of breath, or calf pain. No nausea or vomiting. Tolerating oral intake. Pain control improving. PHYSICAL EXAMINATION General: Alert, oriented, cooperative and no distress. Lower Extremity: Dressing intact; Skin intact, no lesions, rashes or ulcers noted. Muscle mass equal and symmetric to contralateral side. Compartments soft. No atrophy noted. No masses or effusions noted. No tenderness to palpation. EHL/TA/GS motor intact; SILT distally; 2+ DP pulses; Cap refill brisk. DVT Exam: No evidence of DVT seen on physical exam; No cords or calf tenderness; No significant calf/ankle edema. Intake & Output 11/23/19 11/24/19 11/25/19 23:59 23:59 23:59 Intake Total 1910 2450 280 Output Total 4430 1250 Balance -2520 1200 280 Intake: IV 1300 1450 Lactated Ringers Solution 300 1450 1,000 ml @ 75 mls/hr IV ASDIR CARMEN Rx#:[id number] IVPB 100 100 Oral 510 900 280 Output: Urine 4410 1250 Flores 1800 1000 Void 2200 250 Estimated Blood Loss 20 Other: Voiding Method Indwelling Catheter Bedpan Bedpan # Unmeasured Voids Void 2 Bowel Movement No No Active Medications Generic Name Dose Route Start Last Admin Trade Name Freq PRN Reason Stop Dose Admin Amlodipine Besylate 10 mg 11/24/19 10:00 11/25/19 09:27 Norvasc - PO 10 mg DAILY CARMEN Administration Atorvastatin Calcium 20 mg 11/23/19 22:00 11/24/19 21:41 Lipitor - PO 20 mg HS CARMEN Administration Clonidine 0.2 mg 11/23/19 22:00 11/24/19 21:42 Catapres - PO 0.2 mg HS CARMEN Administration Enoxaparin Sodium 40 mg 11/24/19 10:00 11/25/19 09:27 Lovenox - SQ 40 mg DAILY CARMEN Administration Furosemide 60 mg 11/24/19 22:00 11/25/19 13:48 Lasix - PO 60 mg BIDLASIX CARMEN Administration Insulin Aspart 1 vial 11/23/19 16:30 11/25/19 11:23 Novolog Vial Sliding Scale - SQ 8 units ACHS CARMEN Administration Protocol Metoprolol Succinate 50 mg 11/24/19 10:00 11/25/19 09:27 Toprol Xl - PO 50 mg DAILY CARMEN Administration Morphine Sulfate 2 mg 11/23/19 11:49 11/24/19 10:56 Morphine Sulfate SQ 2 mg Q6H PRN Administration PAIN LEVEL 7 - 10 Ordjo-0-Alur Ethyl Esters 2 gm 11/24/19 10:00 11/25/19 09:27 Lovaza - PO 2 gm DAILY CARMEN Administration Oxycodone HCl 5 mg 11/23/19 11:49 11/25/19 09:27 Roxicodone - PO 11/26/19 11:49 5 mg Q4H PRN Administration PAIN LEVEL 1-5 Vital Signs (last) Temp Pulse Resp BP Pulse Ox 98.0 F 80 18 131/62 95 11/25/19 11:00 11/25/19 11:00 11/25/19 11:00 11/25/19 11:00 11/25/19 11:00 Laboratory (coagulation) PT with INR 14.50 SEC (9.7-13.0) H 11/22/19 13:55 Laboratory 11/25/19 10:20 11/25/19 10:20 . ASSESSMENT AND PLAN Daniela Morrow is an 84 year old female status post right hip cephalomedullary nail. POD #2. Doing well. Hemodynamically stable. - FU UCx - FU repeat H/H this afternoon; recommend transfusion if Hbg <8 - PT/OT - Weightbearing as tolerated - Postoperative antibiotics completed - DVT prophylaxis: SCDs, lovenox for chemoprophylaxis. Continue lovenox for 35 days postoperatively. - Follow-up as an outpatient in 2 weeks for wound check and x-rays. - Pain control: Transition to oral pain medications, minimize narcotic use - Ice/Elevation - Elevate HOB, encourage oral intake - Appreciate medical management (Nutrition optimization, decubitus precautions heel/sacrum)
--- NOTE | 2019-11-25 16:27 | PN ---
Teaching Attending Note Name of Resident: Odilon Melchor ATTENDING PHYSICIAN STATEMENT I saw and evaluated the patient. I reviewed the resident's note and discussed the case with the resident. I agree with the resident's findings and plan as documented. SUBJECTIVE: Feeling better, tolerating oral intake, passing flatus. No fever/chills. No chest pain/palpitations. No nausea/vomiting. OBJECTIVE: Afebrile, Hemodynamicaly Stable. Appears comfortable. SpO2 95% on 3L. Last Vital Signs Temp Pulse Resp BP Pulse Ox 98.7 F 88 18 139/70 95 11/25/19 14:37 11/25/19 14:37 11/25/19 14:37 11/25/19 14:37 11/25/19 11:00 Heart - S1, S2, RRR Lungs - clear to auscultation Abdomen - soft, non-tender. Bowel Sounds normal. Extremities - no edema, persisting R calf tenderness. R hip dressing over surgical site. Neuro - AAO x 3. Tone/Power normal - unable to examine RLE due to post-op state. Laboratory Results - last 24 hr 11/24/19 11/24/19 11/25/19 17:13 21:31 05:02 WBC RBC Hgb Hct MCV MCH MCHC RDW Plt Count MPV Absolute Neuts (auto) Neutrophils % Lymphocytes % Monocytes % Eosinophils % Basophils % Nucleated RBC % Sodium Potassium Chloride Carbon Dioxide Anion Gap BUN Creatinine Est GFR (CKD-EPI)AfAm Est GFR (CKD-EPI)NonAf POC Glucometer 154 127 122 Random Glucose Calcium 11/25/19 11/25/19 11/25/19 10:20 10:20 11:11 WBC 11.1 H RBC 2.66 L Hgb 7.8 L Hct 23.8 L MCV 89.5 MCH 29.3 MCHC 32.7 RDW 16.8 H Plt Count 258 MPV 8.5 Absolute Neuts (auto) 8.1 H Neutrophils % 72.9 Lymphocytes % 13.9 Monocytes % 10.0 Eosinophils % 2.3 Basophils % 0.9 Nucleated RBC % 0 Sodium 137 Potassium 3.6 Chloride 98 Carbon Dioxide 33 H Anion Gap 7 L BUN 22.1 H Creatinine 1.2 Est GFR (CKD-EPI)AfAm 48.40 Est GFR (CKD-EPI)NonAf 41.76 POC Glucometer 317 Random Glucose 261 H Calcium 7.9 L Current Medications Generic Name Dose Route Start Last Admin Trade Name Freq PRN Reason Stop Dose Admin Amlodipine Besylate 10 mg 11/24/19 10:00 11/25/19 09:27 Norvasc - PO 10 mg DAILY CARMEN Administration Atorvastatin Calcium 20 mg 11/23/19 22:00 11/24/19 21:41 Lipitor - PO 20 mg HS CARMEN Administration Clonidine 0.2 mg 11/23/19 22:00 11/24/19 21:42 Catapres - PO 0.2 mg HS CARMEN Administration Enoxaparin Sodium 40 mg 11/24/19 10:00 11/25/19 09:27 Lovenox - SQ 40 mg DAILY CARMEN Administration Furosemide 60 mg 11/24/19 22:00 11/25/19 13:48 Lasix - PO 60 mg BIDLASIX CARMEN Administration Insulin Aspart 1 vial 11/23/19 16:30 11/25/19 11:23 Novolog Vial Sliding Scale - SQ 8 units ACHS CARMEN Administration Protocol Metoprolol Succinate 50 mg 11/24/19 10:00 11/25/19 09:27 Toprol Xl - PO 50 mg DAILY CARMEN Administration Morphine Sulfate 2 mg 11/23/19 11:49 11/24/19 10:56 Morphine Sulfate SQ 2 mg Q6H PRN Administration PAIN LEVEL 7 - 10 Mxbgv-4-Nyvu Ethyl Esters 2 gm 11/24/19 10:00 11/25/19 09:27 Lovaza - PO 2 gm DAILY CARMEN Administration Oxycodone HCl 5 mg 11/23/19 11:49 11/25/19 09:27 Roxicodone - PO 11/26/19 11:49 5 mg Q4H PRN Administration PAIN LEVEL 1-5 Home Medications Medication Instructions Recorded Amlodipine/Atorvastatin 1 tab PO DAILY 11/22/19 [Amlodipine-Atorvast 10-20 mg] Aspirin 81 mg PO DAILY 11/22/19 Calcium Carbonate [Calcium] 600 mg PO DAILY 11/22/19 Clonidine HCl 0.1 mg PO DAILY 11/22/19 Clonidine HCl 0.2 mg PO HS 11/22/19 Exenatide [Byetta [Non-Formulary]] 20 mcg SQ DAILY 11/22/19 Furosemide 60 mg PO BID 11/22/19 Glipizide [Glipizide Xl] 2.5 mg PO DAILY 11/22/19 Metoprolol Succinate 50 mg PO BID 11/22/19 Multivit-Min/FA/Lycopen/Lutein 1 tab PO DAILY 11/22/19 [Centrum Silver Tablet] [place]-3 Fatty Acids [[place]-3] 2,000 mg PO DAILY 11/22/19 Pioglitazone HCl 30 mg PO DAILY 11/22/19 Simvastatin 20 mg PO HS 11/22/19 Amlodipine Besylate [Norvasc -] 10 mg PO DAILY 11/25/19 ASSESSMENT AND PLAN: 84 year old female with history of HTN, HLD, DM 2, Chronic Diastolic CHF, [place], found to have R Hip fracture. 1. Acute R Hip Fracture POD 2 s/p cephalomedullary nail fixation by Ortho Hemodnamically stable Drop in H.H post op due to surgery related acute blood loss anemia - on Ferrous Sulfate Repeat H/H and transfuse PRN. DVT Px - Lovenox for 35 days as per Ortho PT Incentive Spirometry. 2. HTN - Resumed on Norvasc, Clonidine if BP allows 3. HLD - on Statin (on 2 statins on home meds - need verification) 4. DM 2 - Pioglitazone, Byetta, Glipizide held. Maintain on Novolog sliding scale. 5. DINO - pre-renal, resolved with IV hydration. IV fluids discontinued. 6. Chronic Diastolic CHF - Lasix initially held in favor of gentle hydration. IV fluids discontinued. Resumed on Lasix. DVT Px - Lovenox SQ
[2019-11-25 18:35] LABS: HEMATOCRIT 24.5 % (32.4-45.2); HEMOGLOBIN 7.9 GM/dL (10.7-15.3); MCH 28.9 pg (25.7-33.7); MCHC 32.4 g/dl (32.0-36.0); MEAN CELL VOLUME 89.2 fl (80-96); MEAN PLT VOLUME 8.5 fl (7.5-11.1); PLATELET COUNT 276 K/MM3 (134-434); RBC 2.75 M/mm3 (3.60-5.2); RDW 16.6 % (11.6-15.6); WHITE BLOOD COUNT 11.7 K/mm3 (4.0-10.0)
--- NOTE | 2019-11-25 20:24 | PN ---
Physical Exam: SUBJECTIVE: 84 year old female patient with past medical history that includes diastolic CHF, HTN, DM, HLD who presented to the ED after her walker got caught and she fell and broke her right hip. Patient seen and examined at bedside. She is POD 2 after right hip cephalomedullary nail fixation surgery. Patient reports being able to pass flat us but not yet having a bowel movement. Patient denies fever/chills, shortness of breath, dysuria, or abdominal pain. OBJECTIVE: Vital Signs Period Temp Pulse Resp BP Sys/[place] Pulse Ox Last 24 Hr 97.8 F-99.6 F 73-91 18-18 112-139/59-70 95-95 GENERAL: The patient is awake, alert, and fully oriented, in no acute distress. HEAD: Normal with no signs of trauma. EYES: Extraocular movements intact. No ptosis. ENT: Ears normal, nares patent, moist mucous membranes. NECK: Trachea midline, full range of motion, supple. LUNGS: Breath sounds equal, clear to auscultation bilaterally, no wheezes, no crackles, no accessory muscle use. HEART: Regular rate and rhythm, S1, S2 without murmur, rub or gallop. ABDOMEN: Soft, nontender, nondistended, normoactive bowel sounds, no guarding, no rebound, no masses. EXTREMITIES: 2+ pulses, warm, well-perfused, no edema. NEUROLOGICAL: Normal speech, gait not observed. PSYCH: Normal mood, normal affect. SKIN: Warm, dry, normal turgor, no rashes or lesions noted Laboratory Results - last 24 hr 11/24/19 11/25/19 11/25/19 21:31 05:02 10:20 WBC 11.1 H RBC 2.66 L Hgb 7.8 L Hct 23.8 L MCV 89.5 MCH 29.3 MCHC 32.7 RDW 16.8 H Plt Count 258 MPV 8.5 Absolute Neuts (auto) 8.1 H Neutrophils % 72.9 Lymphocytes % 13.9 Monocytes % 10.0 Eosinophils % 2.3 Basophils % 0.9 Nucleated RBC % 0 Sodium Potassium Chloride Carbon Dioxide Anion Gap BUN Creatinine Est GFR (CKD-EPI)AfAm Est GFR (CKD-EPI)NonAf POC Glucometer 127 122 Random Glucose Calcium 07/06/20 07/06/20 07/06/20 10:20 11:11 16:32 WBC RBC Hgb Hct MCV MCH MCHC RDW Plt Count MPV Absolute Neuts (auto) Neutrophils % Lymphocytes % Monocytes % Eosinophils % Basophils % Nucleated RBC % Sodium 137 Potassium 3.6 Chloride 98 Carbon Dioxide 33 H Anion Gap 7 L BUN 22.1 H Creatinine 1.2 Est GFR (CKD-EPI)AfAm 48.40 Est GFR (CKD-EPI)NonAf 41.76 POC Glucometer 317 163 Random Glucose 261 H Calcium 7.9 L 11/25/19 18:05 WBC 11.7 H RBC 2.75 L Hgb 7.9 L Hct 24.5 L MCV 89.2 MCH 28.9 MCHC 32.4 RDW 16.6 H Plt Count 276 MPV 8.5 Absolute Neuts (auto) Neutrophils % Lymphocytes % Monocytes % Eosinophils % Basophils % Nucleated RBC % Sodium Potassium Chloride Carbon Dioxide Anion Gap BUN Creatinine Est GFR (CKD-EPI)AfAm Est GFR (CKD-EPI)NonAf POC Glucometer Random Glucose Calcium Active Medications Generic Name Dose Route Start Last Admin Trade Name Freq PRN Reason Stop Dose Admin Amlodipine Besylate 10 mg 11/24/19 10:00 11/25/19 09:27 Norvasc - PO 10 mg DAILY CARMEN Administration Atorvastatin Calcium 20 mg 11/23/19 22:00 11/24/19 21:41 Lipitor - PO 20 mg HS CARMEN Administration Clonidine 0.2 mg 11/23/19 22:00 11/24/19 21:42 Catapres - PO 0.2 mg HS CARMEN Administration Enoxaparin Sodium 40 mg 11/24/19 10:00 11/25/19 09:27 Lovenox - SQ 40 mg DAILY CARMEN Administration Furosemide 60 mg 11/24/19 22:00 11/25/19 13:48 Lasix - PO 60 mg BIDLASIX CARMEN Administration Insulin Aspart 1 vial 11/23/19 16:30 11/25/19 16:52 Novolog Vial Sliding Scale - SQ 2 units ACHS CARMEN Administration Protocol Metoprolol Succinate 50 mg 11/24/19 10:00 11/25/19 09:27 Toprol Xl - PO 50 mg DAILY CARMEN Administration Morphine Sulfate 2 mg 11/23/19 11:49 11/24/19 10:56 Morphine Sulfate SQ 2 mg Q6H PRN Administration PAIN LEVEL 7 - 10 Lttvc-4-Kklr Ethyl Esters 2 gm 11/24/19 10:00 11/25/19 09:27 Lovaza - PO 2 gm DAILY CARMEN Administration Oxycodone HCl 5 mg 11/23/19 11:49 11/25/19 09:27 Roxicodone - PO 11/26/19 11:49 5 mg Q4H PRN Administration PAIN LEVEL 1-5 ASSESSMENT/PLAN: 84 year old female patient with past medical history that includes diastolic CHF, HTN, DM, HLD who presented to the ED after her walker got caught and she fell and broke her right hip. 1. Acute Right Hip Fracture s/p cephalomedullary nail fixation surgery - POD 2 - Patient is passing flatus but has not yet had a bowel movement - Patient is on a regular diet 2. Anemia most likely secondary to blood loss from the surgery - Hgb is 7.9 - following Hgb at midnight and in AM 2. DINO (1.5 on 11/21, now 1.2 on 11/23) - resolved - most likely pre-renal and resolved with the IV fluids 3. HTN - patient is on furosemide, metoprolol, and amlodipine 4. HLD - patient is on atorvastatin 5. DM - patient is on Novolog sliding scale 6. chronic diastolic CHF - patient is on furosemide DVT Px - Enoxaparin SQ Visit type - Emergency Visit Emergency Visit: Yes ED Registration Date: 11/22/19 Care time: The patient presented to the Emergency Department on the above date and was hospitalized for further evaluation of their emergent condition. - New Patient This patient is new to me today: Yes Date on this admission: 11/25/19 - Critical Care Critical Care patient: No ATTENDING PHYSICIAN STATEMENT I saw and evaluated the patient. I reviewed the resident's note and discussed the case with the resident. I agree with the resident's findings and plan as documented. SUBJECTIVE: OBJECTIVE: ASSESSMENT AND PLAN:
[2019-11-25] MEDS ORDERED: DOCUSATE SODIUM 100 MG CAPSULE (FP) PO ONE (20:59)
[2019-11-25] MEDS ORDERED: cloNIDine HCL 0.1 MG TABLET ONE (21:42)
[2019-11-25] MEDS: cloNIDine HCL 0.1 MG TABLET PO SCH (21:55)
[2019-11-25] MEDS: ATORVASTATIN CA 20 MG TABLET (FP) PO SCH (21:55)
[2019-11-26] MEDS: FUROSEMIDE 40 MG TABLET (FP) PO SCH ×2 (06:10→14:36)
[2019-11-26] MEDS: INSULIN SLIDING SCALE (NOVOLOG) 1 VIAL SQ SCH ×3 (06:19→22:07)
--- NOTE | 2019-11-26 07:28 | PN ---
Progress Note (short form) - Note Progress Note: ORTHOPEDIC SURGERY PROGRESS NOTE Department of Orthopedic Surgery SUBJECTIVE No acute events overnight. No complaints currently. Denies chest pain, shortness of breath, or calf pain. No nausea or vomiting. Tolerating oral intake. Pain control improving. PHYSICAL EXAMINATION General: Alert, oriented, cooperative and no distress. Lower Extremity: Dressing intact; Skin intact, no lesions, rashes or ulcers noted. Muscle mass equal and symmetric to contralateral side. Compartments soft. No atrophy noted. No masses or effusions noted. No tenderness to palpation. EHL/TA/GS motor intact; SILT distally; 2+ DP pulses; Cap refill brisk. DVT Exam: No evidence of DVT seen on physical exam; No cords or calf tenderness; No significant calf/ankle edema. Intake & Output 11/24/19 11/25/19 11/26/19 23:59 23:59 23:59 Intake Total 2450 430 Output Total 1250 200 Balance 1200 430 -200 Intake: IV 1450 Lactated Ringers Solution 1450 1,000 ml @ 75 mls/hr IV ASDIR CARMEN Rx#:[id number] IVPB 100 Oral 900 430 Output: Urine 1250 200 Flores 1000 Void 250 200 Other: Voiding Method Bedpan Incontinent Incontinent # Unmeasured Voids Void 1 1 Bowel Movement No No No Active Medications Generic Name Dose Route Start Last Admin Trade Name Freq PRN Reason Stop Dose Admin Amlodipine Besylate 10 mg 11/24/19 10:00 11/25/19 09:27 Norvasc - PO 10 mg DAILY CARMEN Administration Atorvastatin Calcium 20 mg 11/23/19 22:00 11/25/19 21:55 Lipitor - PO 20 mg HS CARMEN Administration Clonidine 0.2 mg 11/23/19 22:00 11/25/19 21:55 Catapres - PO 0.2 mg HS CARMEN Administration Enoxaparin Sodium 40 mg 11/24/19 10:00 11/25/19 09:27 Lovenox - SQ 40 mg DAILY CARMEN Administration Furosemide 60 mg 11/24/19 22:00 11/26/19 06:10 Lasix - PO 60 mg BIDLASIX CARMEN Administration Insulin Aspart 1 vial 11/23/19 16:30 11/26/19 06:19 Novolog Vial Sliding Scale - SQ 1 units ACHS CARMEN Administration Protocol Metoprolol Succinate 50 mg 11/24/19 10:00 11/25/19 09:27 Toprol Xl - PO 50 mg DAILY CARMEN Administration Morphine Sulfate 2 mg 11/23/19 11:49 11/24/19 10:56 Morphine Sulfate SQ 2 mg Q6H PRN Administration PAIN LEVEL 7 - 10 Uylpi-3-Zpda Ethyl Esters 2 gm 11/24/19 10:00 11/25/19 09:27 Lovaza - PO 2 gm DAILY CARMEN Administration Oxycodone HCl 5 mg 11/23/19 11:49 11/25/19 09:27 Roxicodone - PO 11/26/19 11:49 5 mg Q4H PRN Administration PAIN LEVEL 1-5 Vital Signs (last) Temp Pulse Resp BP Pulse Ox 97.6 F 73 18 132/57 L 95 11/26/19 06:00 11/26/19 06:00 11/26/19 06:00 11/26/19 06:00 11/25/19 20:29 Laboratory (coagulation) PT with INR 14.50 SEC (9.7-13.0) H 11/22/19 13:55 Laboratory 11/25/19 18:05 11/25/19 10:20 ASSESSMENT AND PLAN Daniela Morrow is an 84 year old female status post right hip cephalomedullary nail. POD #2. Doing well. Hemodynamically stable. - Dressing changed - FU UCx - FU repeat H/H this AM; patient refused blood yesterday; recommend transfusion if it continues to drop. - PT/OT - Weightbearing as tolerated - Postoperative antibiotics completed - DVT prophylaxis: SCDs, lovenox for chemoprophylaxis. Continue lovenox for 35 days postoperatively. - Follow-up as an outpatient in 2 weeks for wound check and x-rays. - Pain control: Transition to oral pain medications, minimize narcotic use - Ice/Elevation - Elevate HOB, encourage oral intake - Appreciate medical management (Nutrition optimization, decubitus precautions heel/sacrum)
[2019-11-26 08:20] LABS: HEMATOCRIT 21.1 % (32.4-45.2); MCH 29.3 pg (25.7-33.7); MCHC 32.9 g/dl (32.0-36.0); MEAN CELL VOLUME 89.1 fl (80-96); MEAN PLT VOLUME 8.6 fl (7.5-11.1); PLATELET COUNT 251 K/MM3 (134-434); RBC 2.37 M/mm3 (3.60-5.2); RDW 16.9 % (11.6-15.6); WHITE BLOOD COUNT 8.9 K/mm3 (4.0-10.0)
[2019-11-26 08:44] LABS: CALCIUM 8.1 mg/dL (8.5-10.1); POTASSIUM 3.8 mmol/L (3.5-5.1)
[2019-11-26 08:45] LABS: CREATININE 0.9 mg/dL (0.55-1.3); PHOSPHOROUS 2.7 mg/dL (2.5-4.9)
[2019-11-26] MEDS ORDERED: PT OWN MED DRAWER 7, Y5N ONE (09:31)
[2019-11-26] MEDS: amLODIPine BESYLATE 10 MG TABLET (FP) PO SCH (09:32)
[2019-11-26] MEDS: OMEGA-3 ACID ETHYL ESTERS (FATTY-ACIDS) 1 GM CAPSULE (FP) PO SCH (09:32)
[2019-11-26] MEDS: ENOXAPARIN NA (PORCINE) 40 MG/0.4 ML DISP.SYRIN SQ SCH (09:33)
--- NOTE | 2019-11-26 15:50 | PN ---
Teaching Attending Note Name of Resident: Odilon Melchor ATTENDING PHYSICIAN STATEMENT I saw and evaluated the patient. I reviewed the resident's note and discussed the case with the resident. I agree with the resident's findings and plan as documented. SUBJECTIVE: Seen and examined at bedside. Hemoglobin dropped to 7.0 today. Discussed trans fusion with patient and daughter and they have agreed to blood transfusion. OBJECTIVE: Last Vital Signs Temp Pulse Resp BP Pulse Ox 98.8 F 97 H 18 121/61 95 11/26/19 14:51 11/26/19 14:51 11/26/19 14:51 11/26/19 14:51 11/25/19 20:29 PE: per resident note Labs/Imaging: reviewed ASSESSMENT AND PLAN: 84 year old female with history of HTN, HLD, DM 2, Chronic Diastolic CHF, presented from [place] s/p fall, found to have R Hip fracture. # Acute R Hip Fracture POD 3 s/p cephalomedullary nail fixation by Ortho ortho on board: appreciate recs DVT Px - Lovenox for 35 days as per Ortho PT Incentive Spirometry. #acute blood loss anemia hgb now 7.0: will transfuse 2 units. # HTN - Resumed on Norvasc, Clonidine if BP allows # HLD - on Statin (on 2 statins on home meds - need verification) # DM 2 - Pioglitazone, Byetta, Glipizide held. Maintain on Novolog sliding scale. # DINO - pre-renal, resolved with IV hydration. IV fluids discontinued. # Chronic Diastolic CHF - Lasix initially held in favor of gentle hydration. IV fluids discontinued. Resumed on Lasix. DVT Px - Lovenox SQ
[2019-11-26 18:14] LABS: HEMATOCRIT 24.5 % (32.4-45.2); MCH 29.1 pg (25.7-33.7); MCHC 32.6 g/dl (32.0-36.0); MEAN CELL VOLUME 89.2 fl (80-96); MEAN PLT VOLUME 8.8 fl (7.5-11.1); PLATELET COUNT 303 K/MM3 (134-434); RBC 2.75 M/mm3 (3.60-5.2); RDW 16.6 % (11.6-15.6); WHITE BLOOD COUNT 8.9 K/mm3 (4.0-10.0)
--- NOTE | 2019-11-26 18:45 | PN ---
Physical Exam: SUBJECTIVE: The patient was seen and examined at bedside. She is POD 3 since her cephalomedullary nail fixation surgery on 11/23/2019 for her right hip fracture. The patient reported being able to pass gas but has not yet had a bowel movement. The patient denied dysuria, fever/chills, shortness of breath, or new symptoms. The patient's hemoglobin was 7.0 at 4.0. The patient reported being apprehensive of getting a blood transfusion because of a blood transfusion reaction she experienced 57 years ago of jaundice, per the patient. After discussing with the patient the benefits and risks of a blood transfusion, the patient agreed to it. OBJECTIVE: Vital Signs Period Temp Pulse Resp BP Sys/Johnston Pulse Ox Last 24 Hr 97.6 F-98.8 F 73-97 18-18 121-151/48-67 95 GENERAL: The patient is awake, alert, and fully oriented, in no acute distress. HEAD: Normal with no signs of trauma. EYES: Extraocular movements intact. No ptosis. ENT: Ears normal, nares patent, moist mucous membranes. NECK: Trachea midline, full range of motion, supple. LUNGS: Breath sounds equal, clear to auscultation bilaterally, no wheezes, no crackles, no accessory muscle use. HEART: Regular rate and rhythm, S1, S2 without murmur, rub or gallop. ABDOMEN: Soft, nontender, normoactive bowel sounds, no guarding, no rebound, no masses. EXTREMITIES: 2+ pulses, warm, well-perfused, no edema. NEUROLOGICAL: Normal speech, gait not observed. PSYCH: Normal mood, normal affect. SKIN: Warm, dry, normal turgor, no rashes or lesions noted Laboratory Results - last 24 hr 11/25/19 11/25/19 11/25/19 18:05 21:30 21:52 WBC 11.7 H RBC 2.75 L Hgb 7.9 L Hct 24.5 L MCV 89.2 MCH 28.9 MCHC 32.4 RDW 16.6 H Plt Count 276 MPV 8.5 Sodium Potassium Chloride Carbon Dioxide Anion Gap BUN Creatinine Est GFR (CKD-EPI)AfAm Est GFR (CKD-EPI)NonAf POC Glucometer 234 Random Glucose Calcium Phosphorus Magnesium Blood Type O POSITIVE Antibody Screen Negative Crossmatch See Detail 11/26/19 11/26/19 11/26/19 06:17 07:00 07:00 WBC 8.9 RBC 2.37 L Hgb 7.0 L Hct 21.1 L MCV 89.1 MCH 29.3 MCHC 32.9 RDW 16.9 H Plt Count 251 MPV 8.6 Sodium 139 Potassium 3.8 Chloride 100 Carbon Dioxide 32 Anion Gap 8 BUN 27.0 H Creatinine 0.9 Est GFR (CKD-EPI)AfAm 68.53 Est GFR (CKD-EPI)NonAf 59.13 POC Glucometer 142 Random Glucose 133 H Calcium 8.1 L Phosphorus 2.7 Magnesium 2.0 Blood Type Antibody Screen Crossmatch 11/26/19 16:47 WBC RBC Hgb Hct MCV MCH MCHC RDW Plt Count MPV Sodium Potassium Chloride Carbon Dioxide Anion Gap BUN Creatinine Est GFR (CKD-EPI)AfAm Est GFR (CKD-EPI)NonAf POC Glucometer 296 Random Glucose Calcium Phosphorus Magnesium Blood Type Antibody Screen Crossmatch Active Medications Generic Name Dose Route Start Last Admin Trade Name Freq PRN Reason Stop Dose Admin Amlodipine Besylate 10 mg 11/24/19 10:00 11/26/19 09:32 Norvasc - PO 10 mg DAILY CARMEN Administration Atorvastatin Calcium 20 mg 11/23/19 22:00 11/25/19 21:55 Lipitor - PO 20 mg HS CARMEN Administration Clonidine 0.2 mg 11/23/19 22:00 11/25/19 21:55 Catapres - PO 0.2 mg HS CARMEN Administration Enoxaparin Sodium 40 mg 11/24/19 10:00 11/26/19 09:33 Lovenox - SQ 40 mg DAILY CARMEN Administration Furosemide 60 mg 11/24/19 22:00 11/26/19 14:36 Lasix - PO 60 mg BIDLASIX CARMEN Administration Insulin Aspart 1 vial 11/23/19 16:30 11/26/19 16:52 Novolog Vial Sliding Scale - SQ 6 units ACHS CARMEN Administration Protocol Metoprolol Succinate 50 mg 11/24/19 10:00 11/26/19 09:32 Toprol Xl - PO 50 mg DAILY CARMEN Administration Morphine Sulfate 2 mg 11/23/19 11:49 11/24/19 10:56 Morphine Sulfate SQ 2 mg Q6H PRN Administration PAIN LEVEL 7 - 10 Tiblq-4-Dkoa Ethyl Esters 2 gm 11/24/19 10:00 11/26/19 09:32 Lovaza - PO 2 gm DAILY CARMEN Administration ASSESSMENT/PLAN: 84 year old female patient with past medical history of Diastolic CHF, HTN, HLD, and DM, who presented to the ED with a right hip fracture after her walker got caught and she fell. She is now POD 3 her cephalomedullary nail fixation surgery. 1. Right Hip Fracture s/p cephalomedullary nail fixation - the patient reports being able to pass gas, but she has not yet had a bowel movement Plan: - monitoring the patient for any changes and for if she has a bowel movement. 2. Anemia secondary to blood loss from the surgery - hemoglobin was 7.0 in the morning of 11/26/2019, now 8.0. - 1 pRBC transfused at time 17:45 today, with the nurse in attendance, per the palliative care note. Plan: - transfuse if Hemoglobin is too low 3. Hx of HTN - Past Medical History of HTN - diastolic blood pressure occasionally low, such as 130/48 today. Plan: - The patient is on metoprolol, amlodipine, furosemide, and clonidine 4. Hx of HLD - Past Medical History of HLD Plan: - The patient is on atorvastatin 5. Hx of DM - Past Medical History of DM Plan: - The patient is on Novolog Sliding Scale DVT Px - Lovenox Visit type - Emergency Visit Emergency Visit: Yes ED Registration Date: 11/22/19 Care time: The patient presented to the Emergency Department on the above date and was hospitalized for further evaluation of their emergent condition. - New Patient This patient is new to me today: No - Critical Care Critical Care patient: No ATTENDING PHYSICIAN STATEMENT I saw and evaluated the patient. I reviewed the resident's note and discussed the case with the resident. I agree with the resident's findings and plan as documented. SUBJECTIVE: OBJECTIVE: ASSESSMENT AND PLAN:
[2019-11-26] MEDS: ATORVASTATIN CA 20 MG TABLET (FP) PO SCH (22:06)
[2019-11-26] MEDS: cloNIDine HCL 0.1 MG TABLET PO SCH (22:06)
[2019-11-27] MEDS: FUROSEMIDE 40 MG TABLET (FP) PO SCH ×2 (05:53→17:03)
[2019-11-27] MEDS: INSULIN SLIDING SCALE (NOVOLOG) 1 VIAL SQ SCH ×5 (06:26→22:20)
[2019-11-27 09:17] LABS: HEMATOCRIT 28.7 % (32.4-45.2); HEMOGLOBIN 9.5 GM/dL (10.7-15.3); MCH 28.8 pg (25.7-33.7); MCHC 33.2 g/dl (32.0-36.0); MEAN CELL VOLUME 86.6 fl (80-96); MEAN PLT VOLUME 8.5 fl (7.5-11.1); PLATELET COUNT 332 K/MM3 (134-434); RBC 3.31 M/mm3 (3.60-5.2); WHITE BLOOD COUNT 10.1 K/mm3 (4.0-10.0)
[2019-11-27] MEDS ORDERED: PT OWN MED DRAWER 7, Y5N ONE ×2 (09:29→21:21)
[2019-11-27] MEDS: ENOXAPARIN NA (PORCINE) 40 MG/0.4 ML DISP.SYRIN SQ SCH (09:35)
[2019-11-27] MEDS: amLODIPine BESYLATE 10 MG TABLET (FP) PO SCH (09:35)
[2019-11-27] MEDS: OMEGA-3 ACID ETHYL ESTERS (FATTY-ACIDS) 1 GM CAPSULE (FP) PO SCH (09:35)
[2019-11-27 10:04] LABS: BLOOD UREA NITROGEN 26.5 mg/dL (7-18); CALCIUM 8.7 mg/dL (8.5-10.1); CREATININE 0.9 mg/dL (0.55-1.3); PHOSPHOROUS 2.8 mg/dL (2.5-4.9); POTASSIUM 3.6 mmol/L (3.5-5.1)
--- NOTE | 2019-11-27 14:46 | PN ---
Teaching Attending Note Name of Resident: Odilon Melchor ATTENDING PHYSICIAN STATEMENT I saw and evaluated the patient. I reviewed the resident's note and discussed the case with the resident. I agree with the resident's findings and plan as documented. SUBJECTIVE: Seen and examined at bedside. Hemoglobin increased to 9.5. Patient is medicall y cleared for discharge to short-term rehab. OBJECTIVE: Last Vital Signs Temp Pulse Resp BP Pulse Ox 98.5 F 86 18 126/54 L 100 11/27/19 13:50 11/27/19 13:50 11/27/19 13:50 11/27/19 13:50 11/27/19 10:00 PE: per resident note Labs/Imaging: reviewed ASSESSMENT AND PLAN: 84 year old female with history of HTN, HLD, DM 2, Chronic Diastolic CHF, presen govind from [place] s/p fall, found to have R Hip fracture.Patient underwent a cephalo- medullary nail fixation. Course was complicated by postoperative anemia and patient received 2 units PRBCs without complication and with good response. Patient is medically cleared for discharge on her home medications. She will be sent to to short-term rehab.
--- NOTE | 2019-11-27 19:17 | PN ---
Physical Exam: SUBJECTIVE: The patient was seen and examined at bedside. She is POD 4 since her cephalomedullary nail fixation surgery on 11/23/2019 for her right hip fracture. The patient reported being able to pass gas but has not yet had a bowel movement. The patient denied fever/chills, dysuria, or difficulty breathing. The patient received a total of 2 blood transfusions since her surgery per the nurses with improvement of her hemoglobin to 9.5. OBJECTIVE: Vital Signs Period Temp Pulse Resp BP Sys/Johnston Pulse Ox Last 24 Hr 97.4 F-98.5 F 75-91 18-18 119-138/54-65 95-100 GENERAL: The patient is awake, alert, and fully oriented, in no acute distress. HEAD: Normal with no signs of trauma. EYES: Extraocular movements intact. No ptosis. ENT: Ears normal, nares patent, moist mucous membranes. NECK: Trachea midline, full range of motion, supple. LUNGS: Breath sounds equal bilaterally, clear to auscultation bilaterally. No wheezes, rales, or ronchi. HEART: Regular rate and rhythm, S1, S2 without murmur, rub or gallop. ABDOMEN: Soft, nontender, nondistended, normoactive bowel sounds, no guarding, no rebound, no masses. EXTREMITIES: 2+ pulses, warm, well-perfused, no edema. Capillary refill < 2 seconds. NEUROLOGICAL: Normal speech, gait not observed. PSYCH: Normal mood, normal affect. SKIN: Warm, dry, normal turgor, no rashes or lesions noted Laboratory Results - last 24 hr 11/25/19 11/26/19 11/27/19 21:30 21:59 05:49 WBC RBC Hgb Hct MCV MCH MCHC RDW Plt Count MPV Sodium Potassium Chloride Carbon Dioxide Anion Gap BUN Creatinine Est GFR (CKD-EPI)AfAm Est GFR (CKD-EPI)NonAf POC Glucometer 212 138 Random Glucose Calcium Phosphorus Magnesium Blood Type O POSITIVE Antibody Screen Negative Crossmatch See Detail 11/27/19 11/27/19 11/27/19 08:25 08:25 11:54 WBC 10.1 H RBC 3.31 L Hgb 9.5 L Hct 28.7 L D MCV 86.6 MCH 28.8 MCHC 33.2 RDW 16.0 H Plt Count 332 MPV 8.5 Sodium 140 Potassium 3.6 Chloride 96 L Carbon Dioxide 34 H Anion Gap 10 BUN 26.5 H Creatinine 0.9 Est GFR (CKD-EPI)AfAm 68.53 Est GFR (CKD-EPI)NonAf 59.13 POC Glucometer 272 Random Glucose 149 H Calcium 8.7 Phosphorus 2.8 Magnesium 2.0 Blood Type Antibody Screen Crossmatch 11/27/19 16:32 WBC RBC Hgb Hct MCV MCH MCHC RDW Plt Count MPV Sodium Potassium Chloride Carbon Dioxide Anion Gap BUN Creatinine Est GFR (CKD-EPI)AfAm Est GFR (CKD-EPI)NonAf POC Glucometer 218 Random Glucose Calcium Phosphorus Magnesium Blood Type Antibody Screen Crossmatch Active Medications Generic Name Dose Route Start Last Admin Trade Name Freq PRN Reason Stop Dose Admin Amlodipine Besylate 10 mg 11/24/19 10:00 11/27/19 09:35 Norvasc - PO 10 mg DAILY CARMEN Administration Atorvastatin Calcium 20 mg 11/23/19 22:00 11/26/19 22:06 Lipitor - PO 20 mg HS CARMEN Administration Clonidine 0.2 mg 11/23/19 22:00 11/26/19 22:06 Catapres - PO 0.2 mg HS CARMEN Administration Enoxaparin Sodium 40 mg 11/24/19 10:00 11/27/19 09:35 Lovenox - SQ 40 mg DAILY CARMEN Administration Furosemide 60 mg 11/24/19 22:00 11/27/19 17:03 Lasix - PO 60 mg BIDLASIX CARMEN Administration Insulin Aspart 1 vial 11/23/19 16:30 11/27/19 17:03 Novolog Vial Sliding Scale - SQ 4 units ACHS CARMEN Administration Protocol Metoprolol Succinate 50 mg 11/24/19 10:00 11/27/19 09:35 Toprol Xl - PO 50 mg DAILY CARMEN Administration Morphine Sulfate 2 mg 11/23/19 11:49 11/24/19 10:56 Morphine Sulfate SQ 2 mg Q6H PRN Administration PAIN LEVEL 7 - 10 Jgonn-6-Nxlz Ethyl Esters 2 gm 11/24/19 10:00 11/27/19 09:35 Lovaza - PO 2 gm DAILY CARMEN Administration ASSESSMENT/PLAN: 84 year old female patient with past medical history of Diastolic CHF, HTN, HLD, and DM, who presented to the ED with a right hip fracture after her walker got caught and she fell. She is now POD 4 her cephalomedullary nail fixation surgery. 1. Right Hip Fracture s/p cephalomedullary nail fixation - the patient reports being able to pass gas, but she has not yet had a bowel movement Plan: - monitoring the patient for any changes and for if she has a bowel movement. 2. Anemia secondary to blood loss from the surgery - hemoglobin is now 9.5 after having received 2 blood transfusions since her surgery. Plan: - transfuse if Hemoglobin is too low - monitoring the hemoglobin in the CBC 3. Urine culture contaminated - patient denies any bladder symptoms such as dysuria - urinalysis from 11/21 shows nitrites Plan: - No further workup needed as patient is asymptomatic 4. Hx of HTN - Past Medical History of HTN - diastolic blood pressure occasionally low, such as 130/48 today. Plan: - The patient is on metoprolol, amlodipine, furosemide, and clonidine 5. Hx of HLD - Past Medical History of HLD Plan: - The patient is on atorvastatin 6. Hx of DM - Past Medical History of DM Plan: - The patient is on Novolog Sliding Scale DVT Px - Lovenox Visit type - Emergency Visit Emergency Visit: Yes ED Registration Date: 11/22/19 Care time: The patient presented to the Emergency Department on the above date and was hospitalized for further evaluation of their emergent condition. - New Patient This patient is new to me today: No - Critical Care Critical Care patient: No ATTENDING PHYSICIAN STATEMENT I saw and evaluated the patient. I reviewed the resident's note and discussed the case with the resident. I agree with the resident's findings and plan as documented. SUBJECTIVE: OBJECTIVE: ASSESSMENT AND PLAN:
[2019-11-27 20:21] LABS: HEMATOCRIT 32.7 % (32.4-45.2); HEMOGLOBIN 10.8 GM/dL (10.7-15.3); MCH 29.2 pg (25.7-33.7); MCHC 33.1 g/dl (32.0-36.0); MEAN PLT VOLUME 8.5 fl (7.5-11.1); PLATELET COUNT 323 K/MM3 (134-434); RBC 3.72 M/mm3 (3.60-5.2); RDW 15.4 % (11.6-15.6); WHITE BLOOD COUNT 9.8 K/mm3 (4.0-10.0)
[2019-11-27] MEDS ORDERED: DOCUSATE SODIUM 100 MG CAPSULE (FP) PO ONE (21:07)
[2019-11-27] MEDS: ATORVASTATIN CA 20 MG TABLET (FP) PO SCH (21:27)
[2019-11-27] MEDS: cloNIDine HCL 0.1 MG TABLET PO SCH (21:27)
[2019-11-27] MEDS ORDERED: ACETAMINOPHEN 325 MG TABLET (FP) PO PRN (22:03)
[2019-11-28] MEDS: FUROSEMIDE 40 MG TABLET (FP) PO SCH ×2 (05:48→14:02)
[2019-11-28] MEDS: INSULIN SLIDING SCALE (NOVOLOG) 1 VIAL SQ SCH ×4 (05:59→21:26)
[2019-11-28 08:49] LABS: HEMATOCRIT 33.9 % (32.4-45.2); HEMOGLOBIN 11.2 GM/dL (10.7-15.3); MCH 28.7 pg (25.7-33.7); MEAN CELL VOLUME 86.9 fl (80-96); PLATELET COUNT 352 K/MM3 (134-434); RDW 15.4 % (11.6-15.6); WHITE BLOOD COUNT 13.8 K/mm3 (4.0-10.0)
[2019-11-28 09:16] LABS: BLOOD UREA NITROGEN 27.7 mg/dL (7-18); CALCIUM 8.6 mg/dL (8.5-10.1); CREATININE 0.9 mg/dL (0.55-1.3); MAGNESIUM 2.1 mg/dL (1.8-2.4); POTASSIUM 3.7 mmol/L (3.5-5.1)
[2019-11-28] MEDS ORDERED: PT OWN MED DRAWER 7, Y5N ONE ×2 (10:36→21:29)
[2019-11-28] MEDS: ENOXAPARIN NA (PORCINE) 40 MG/0.4 ML DISP.SYRIN SQ SCH (10:39)
[2019-11-28] MEDS: amLODIPine BESYLATE 10 MG TABLET (FP) PO SCH (10:39)
[2019-11-28] MEDS: OMEGA-3 ACID ETHYL ESTERS (FATTY-ACIDS) 1 GM CAPSULE (FP) PO SCH (10:40)
--- NOTE | 2019-11-28 14:53 | PN ---
Teaching Attending Note Name of Resident: Odilon Melchor ATTENDING PHYSICIAN STATEMENT I saw and evaluated the patient. I reviewed the resident's note and discussed the case with the resident. I agree with the resident's findings and plan as documented. SUBJECTIVE: Seen and examined at bedside. Discharge unable to be completed yesterday due to pending insurance authorization. Patient is medically cleared for discharge will be discharged today to short-term rehab. OBJECTIVE: Last Vital Signs Temp Pulse Resp BP Pulse Ox 98.5 F 90 18 145/82 92 L 11/28/19 05:16 11/28/19 05:16 11/28/19 05:16 11/28/19 05:16 11/28/19 10:00 PE: per resident note Labs/Imaging: reviewed ASSESSMENT AND PLAN: 84 year old female with history of HTN, HLD, DM 2, Chronic Diastolic CHF, presented from [place] s/p fall, found to have R Hip fracture.Patient underwent a cephalo-medullary nail fixation. Course was complicated by postoperative anemia and patient received 2 units PRBCs without complication and with good response. Patient is medically cleared for discharge on her home medications. She will be sent to to short-term rehab.
--- NOTE | 2019-11-28 18:52 | PN ---
Progress Note (short form) - Note Progress Note: ORTHOPEDIC SURGERY PROGRESS NOTE Department of Orthopedic Surgery SUBJECTIVE No acute events overnight. No complaints currently. Denies chest pain, shortness of breath, or calf pain. No nausea or vomiting. Tolerating oral intake. Pain control improving. PHYSICAL EXAMINATION General: Alert, oriented, cooperative and no distress. Lower Extremity: Dressing intact; Incision clean and dry; [place] intact. Skin intact, no lesions, rashes or ulcers noted. Muscle mass equal and symmetric to contralateral side. Compartments soft. No atrophy noted. No masses or effusions noted. No tenderness to palpation. EHL/TA/GS motor intact; SILT distally; 2+ DP pulses; Cap refill brisk. DVT Exam: No evidence of DVT seen on physical exam; No cords or calf tenderness; No significant calf/ankle edema. Intake & Output 11/26/19 11/27/19 11/28/19 23:59 23:59 23:59 Intake Total 700 380 400 Output Total 200 Balance 500 380 400 Intake: Oral 700 380 300 Oral Supplement 100 Output: Urine 200 Void 200 Other: Voiding Method External Catheter External Catheter Diaper # Unmeasured Voids Void 1 1 1 Bowel Movement No No Yes # Bowel Movements 0 Active Medications Generic Name Dose Route Start Last Admin Trade Name Freq PRN Reason Stop Dose Admin Acetaminophen 650 mg 11/27/19 22:03 11/27/19 22:48 Tylenol - PO 650 mg Q6H PRN Administration FEVER Amlodipine Besylate 10 mg 11/24/19 10:00 11/28/19 10:39 Norvasc - PO 10 mg DAILY CARMEN Administration Atorvastatin Calcium 20 mg 11/23/19 22:00 11/27/19 21:27 Lipitor - PO 20 mg HS CARMEN Administration Clonidine 0.2 mg 11/23/19 22:00 11/27/19 21:27 Catapres - PO 0.2 mg HS CARMEN Administration Enoxaparin Sodium 40 mg 11/24/19 10:00 11/28/19 10:39 Lovenox - SQ 40 mg DAILY CARMEN Administration Furosemide 60 mg 11/24/19 22:00 11/28/19 14:02 Lasix - PO 60 mg BIDLASIX CARMEN Administration Insulin Aspart 1 vial 11/23/19 16:30 11/28/19 18:43 Novolog Vial Sliding Scale - SQ Not Given ACHS CARMEN Protocol Metoprolol Succinate 50 mg 11/24/19 10:00 11/28/19 10:39 Toprol Xl - PO 50 mg DAILY CARMEN Administration Morphine Sulfate 2 mg 11/23/19 11:49 11/24/19 10:56 Morphine Sulfate SQ 2 mg Q6H PRN Administration PAIN LEVEL 7 - 10 Jmcfc-4-Eepm Ethyl Esters 2 gm 11/24/19 10:00 11/28/19 10:40 Lovaza - PO 2 gm DAILY CARMEN Administration Vital Signs (last) Temp Pulse Resp BP Pulse Ox 98.5 F 90 18 145/82 92 L 11/28/19 05:16 11/28/19 05:16 11/28/19 05:16 11/28/19 05:16 11/28/19 10:00 Laboratory (coagulation) PT with INR 14.50 SEC (9.7-13.0) H 11/22/19 13:55 Laboratory 11/28/19 07:42 11/28/19 07:42 ASSESSMENT AND PLAN Daniela Morrow is an 84 year old female status post right hip cephalomedullary nail. POD #4. Doing well. Hemodynamically stable. - Dressing changed today - PT/OT; Weightbearing as tolerated - DVT prophylaxis: SCDs, lovenox for chemoprophylaxis. Continue lovenox for 35 days postoperatively. - DC [place] POD #14 - Pain control: Transition to oral pain medications, minimize narcotic use - Ice/Elevation - Elevate HOB, encourage oral intake - Appreciate medical management (Nutrition optimization, decubitus precautions heel/sacrum) - Dispo planning The patient has a follow up appointment in our office on Saturday 12/16 at 9:30 AM [address] [place] [address]
--- NOTE | 2019-11-28 19:42 | PN ---
Physical Exam: SUBJECTIVE: The patient was seen and examined at bedside. She is POD 5 since her cephalomedullary nail fixation surgery on 11/23/2019 for her right hip fracture. The patient denied fever/chills, dysuria, or difficulty breathing. OBJECTIVE: Vital Signs Period Temp Pulse Resp BP Sys/Johnston Pulse Ox Last 24 Hr 98.5 F-99.7 F 80-107 18-18 132-145/56-82 92-97 GENERAL: The patient is awake, alert, and fully oriented, in no acute distress. HEAD: Normal with no signs of trauma. EYES: Extraocular movements intact. No ptosis. ENT: Ears normal, nares patent. NECK: Trachea midline, full range of motion, supple. LUNGS: Breath sounds equal, clear to auscultation bilaterally, no wheezes, no crackles, no accessory muscle use. HEART: Regular rate and rhythm, S1, S2 without murmur, rub or gallop. ABDOMEN: Soft, nontender, nondistended, normoactive bowel sounds, no guarding, no rebound, no masses. EXTREMITIES: 2+ pulses, warm, well-perfused, no edema. NEUROLOGICAL: Normal speech, gait not observed. PSYCH: Normal mood, normal affect. SKIN: Warm, dry, normal turgor, no rashes or lesions noted Laboratory Results - last 24 hr 11/27/19 11/27/19 11/28/19 19:30 21:25 05:51 WBC 9.8 RBC 3.72 Hgb 10.8 Hct 32.7 MCV 88.0 MCH 29.2 MCHC 33.1 RDW 15.4 Plt Count 323 MPV 8.5 Sodium Potassium Chloride Carbon Dioxide Anion Gap BUN Creatinine Est GFR (CKD-EPI)AfAm Est GFR (CKD-EPI)NonAf POC Glucometer 233 186 Random Glucose Calcium Phosphorus Magnesium 11/28/19 11/28/19 11/28/19 07:42 07:42 11:29 WBC 13.8 H RBC 3.90 Hgb 11.2 Hct 33.9 MCV 86.9 MCH 28.7 MCHC 33.0 RDW 15.4 Plt Count 352 MPV 8.0 Sodium 138 Potassium 3.7 Chloride 94 L Carbon Dioxide 34 H Anion Gap 10 BUN 27.7 H Creatinine 0.9 Est GFR (CKD-EPI)AfAm 68.53 Est GFR (CKD-EPI)NonAf 59.13 POC Glucometer 294 Random Glucose 160 H Calcium 8.6 Phosphorus 3.0 Magnesium 2.1 11/28/19 16:48 WBC RBC Hgb Hct MCV MCH MCHC RDW Plt Count MPV Sodium Potassium Chloride Carbon Dioxide Anion Gap BUN Creatinine Est GFR (CKD-EPI)AfAm Est GFR (CKD-EPI)NonAf POC Glucometer 126 Random Glucose Calcium Phosphorus Magnesium Active Medications Generic Name Dose Route Start Last Admin Trade Name Freq PRN Reason Stop Dose Admin Acetaminophen 650 mg 11/27/19 22:03 11/27/19 22:48 Tylenol - PO 650 mg Q6H PRN Administration FEVER Amlodipine Besylate 10 mg 11/24/19 10:00 11/28/19 10:39 Norvasc - PO 10 mg DAILY CARMEN Administration Atorvastatin Calcium 20 mg 11/23/19 22:00 11/27/19 21:27 Lipitor - PO 20 mg HS CARMEN Administration Clonidine 0.2 mg 11/23/19 22:00 11/27/19 21:27 Catapres - PO 0.2 mg HS CARMEN Administration Enoxaparin Sodium 40 mg 11/24/19 10:00 11/28/19 10:39 Lovenox - SQ 40 mg DAILY CARMEN Administration Furosemide 60 mg 11/24/19 22:00 11/28/19 14:02 Lasix - PO 60 mg BIDLASIX CARMEN Administration Insulin Aspart 1 vial 11/23/19 16:30 11/28/19 18:43 Novolog Vial Sliding Scale - SQ Not Given ACHS CARMEN Protocol Metoprolol Succinate 50 mg 11/24/19 10:00 11/28/19 10:39 Toprol Xl - PO 50 mg DAILY CARMEN Administration Morphine Sulfate 2 mg 11/23/19 11:49 11/24/19 10:56 Morphine Sulfate SQ 2 mg Q6H PRN Administration PAIN LEVEL 7 - 10 Enpwx-0-Cjvq Ethyl Esters 2 gm 11/24/19 10:00 11/28/19 10:40 Lovaza - PO 2 gm DAILY CARMEN Administration ASSESSMENT/PLAN: 84 year old female patient with past medical history of Diastolic CHF, HTN, HLD, and DM, who presented to the ED with a right hip fracture after her walker got caught and she fell. She is now POD 5 her cephalomedullary nail fixation surgery. 1. Right Hip Fracture s/p cephalomedullary nail fixation - [facility] 2. Anemia secondary to blood loss from the surgery - resolved - hemoglobin is now 11.2 today Plan: - monitoring the hemoglobin in the CBC 3. Urine culture contaminated - patient denies any bladder symptoms such as dysuria - urinalysis from 11/21 shows nitrites Plan: - No further workup needed as patient is asymptomatic 4. Hx of HTN - Past Medical History of HTN - diastolic blood pressure occasionally low, such as 130/48 today. Plan: - The patient is on metoprolol, amlodipine, furosemide, and clonidine 5. Hx of HLD - Past Medical History of HLD Plan: - The patient is on atorvastatin 6. Hx of DM - Past Medical History of DM Plan: - The patient is on Novolog Sliding Scale DVT Px - Lovenox Visit type - Emergency Visit Emergency Visit: Yes ED Registration Date: 11/22/19 Care time: The patient presented to the Emergency Department on the above date and was hospitalized for further evaluation of their emergent condition. - New Patient This patient is new to me today: No - Critical Care Critical Care patient: No ATTENDING PHYSICIAN STATEMENT I saw and evaluated the patient. I reviewed the resident's note and discussed the case with the resident. I agree with the resident's findings and plan as documented. SUBJECTIVE: OBJECTIVE: ASSESSMENT AND PLAN:
[2019-11-28] MEDS: ATORVASTATIN CA 20 MG TABLET (FP) PO SCH (21:40)
[2019-11-28] MEDS: cloNIDine HCL 0.1 MG TABLET PO SCH (21:40)
[2019-11-29] MEDS: FUROSEMIDE 40 MG TABLET (FP) PO SCH ×2 (05:12→14:55)
[2019-11-29] MEDS: INSULIN SLIDING SCALE (NOVOLOG) 1 VIAL SQ SCH ×4 (06:12→21:44)
[2019-11-29 09:18] LABS: HEMATOCRIT 31.2 % (32.4-45.2); HEMOGLOBIN 10.2 GM/dL (10.7-15.3); MCH 28.5 pg (25.7-33.7); MCHC 32.7 g/dl (32.0-36.0); MEAN CELL VOLUME 87.2 fl (80-96); PLATELET COUNT 380 K/MM3 (134-434); RBC 3.58 M/mm3 (3.60-5.2); RDW 15.2 % (11.6-15.6); WHITE BLOOD COUNT 16.8 K/mm3 (4.0-10.0)
[2019-11-29] MEDS ORDERED: PT OWN MED DRAWER 7, Y5N ONE (09:42)
[2019-11-29 09:51] LABS: BLOOD UREA NITROGEN 28.2 mg/dL (7-18); CALCIUM 8.5 mg/dL (8.5-10.1); CREATININE 0.9 mg/dL (0.55-1.3); PHOSPHOROUS 3.3 mg/dL (2.5-4.9); POTASSIUM 3.5 mmol/L (3.5-5.1)
[2019-11-29] MEDS: amLODIPine BESYLATE 10 MG TABLET (FP) PO SCH (10:43)
[2019-11-29] MEDS: ENOXAPARIN NA (PORCINE) 40 MG/0.4 ML DISP.SYRIN SQ SCH (10:43)
[2019-11-29] MEDS: OMEGA-3 ACID ETHYL ESTERS (FATTY-ACIDS) 1 GM CAPSULE (FP) PO SCH (10:47)
--- NOTE | 2019-11-29 18:12 | PN ---
Teaching Attending Note Name of Resident: Odilon Melchor ATTENDING PHYSICIAN STATEMENT I saw and evaluated the patient. I reviewed the resident's note and discussed the case with the resident. I agree with the resident's findings and plan as documented. SUBJECTIVE: Seen and examined at bedside. She remains medically cleared for discharge.. No w pending negative COVID tests OBJECTIVE: Last Vital Signs Temp Pulse Resp BP Pulse Ox 99.1 F 92 H 18 119/56 L 95 11/29/19 14:47 11/29/19 14:47 11/29/19 14:47 11/29/19 14:47 11/29/19 10:00 PE: per resident note Labs/Imaging: reviewed ASSESSMENT AND PLAN: 84 year old female with history of HTN, HLD, DM 2, Chronic Diastolic CHF, presented from NH s/p fall, found to have R Hip fracture. # Acute R Hip Fracture POD 3 s/p cephalomedullary nail fixation by Ortho ortho on board: appreciate recs DVT Px - Lovenox for 35 days as per Ortho PT Incentive Spirometry. #acute blood loss anemia -s/p 2 units # HTN -cont home mecds # HLD -cont statin # DM 2 -JG -restart home orals on dc # DINO: resolved DVT Px - Lovenox SQ
--- NOTE | 2019-11-29 18:39 | PN ---
Physical Exam: SUBJECTIVE: The patient was seen and examined at bedside. She is POD 6 since her cephalomedullary nail fixation surgery on 11/23/2019 for her right hip fracture. The patient denied fever/chills, shortness of breath, or dysuria. OBJECTIVE: Vital Signs Period Temp Pulse Resp BP Sys/Johnston Pulse Ox Last 24 Hr 99.1 F-100.7 F 87-105 18-20 119-148/56-68 94-95 GENERAL: The patient is awake, alert, and fully oriented, in no acute distress. HEAD: Normal with no signs of trauma. EYES: Extraocular movements intact. No ptosis. ENT: Ears normal, nares patent. NECK: Trachea midline, full range of motion, supple. LUNGS: Breath sounds equal, clear to auscultation bilaterally, no wheezes, no crackles, no accessory muscle use. HEART: Regular rate and rhythm, S1, S2 without murmur, rub or gallop. ABDOMEN: Soft, nontender, normoactive bowel sounds, no guarding, no rebound, no masses. EXTREMITIES: 2+ pulses, warm, well-perfused, no edema. NEUROLOGICAL: Normal speech, gait not observed. PSYCH: Normal mood, normal affect. SKIN: Warm, dry, normal turgor, no rashes or lesions noted Laboratory Results - last 24 hr 11/25/19 11/28/19 11/29/19 21:30 21:23 05:16 WBC RBC Hgb Hct MCV MCH MCHC RDW Plt Count MPV Sodium Potassium Chloride Carbon Dioxide Anion Gap BUN Creatinine Est GFR (CKD-EPI)AfAm Est GFR (CKD-EPI)NonAf POC Glucometer 170 135 Random Glucose Calcium Phosphorus Magnesium Blood Type O POSITIVE Antibody Screen Negative Crossmatch See Detail 11/29/19 11/29/19 11/29/19 08:20 08:20 12:15 WBC 16.8 H RBC 3.58 L Hgb 10.2 L Hct 31.2 L MCV 87.2 MCH 28.5 MCHC 32.7 RDW 15.2 Plt Count 380 MPV 8.0 Sodium 137 Potassium 3.5 Chloride 95 L Carbon Dioxide 32 Anion Gap 10 BUN 28.2 H Creatinine 0.9 Est GFR (CKD-EPI)AfAm 68.53 Est GFR (CKD-EPI)NonAf 59.13 POC Glucometer 216 Random Glucose 197 H Calcium 8.5 Phosphorus 3.3 Magnesium 2.0 Blood Type Antibody Screen Crossmatch 11/29/19 16:53 WBC RBC Hgb Hct MCV MCH MCHC RDW Plt Count MPV Sodium Potassium Chloride Carbon Dioxide Anion Gap BUN Creatinine Est GFR (CKD-EPI)AfAm Est GFR (CKD-EPI)NonAf POC Glucometer 198 Random Glucose Calcium Phosphorus Magnesium Blood Type Antibody Screen Crossmatch Active Medications Generic Name Dose Route Start Last Admin Trade Name Freq PRN Reason Stop Dose Admin Acetaminophen 650 mg 11/27/19 22:03 11/27/19 22:48 Tylenol - PO 650 mg Q6H PRN Administration FEVER Amlodipine Besylate 10 mg 11/24/19 10:00 11/29/19 10:43 Norvasc - PO 10 mg DAILY CARMEN Administration Atorvastatin Calcium 20 mg 11/23/19 22:00 11/28/19 21:40 Lipitor - PO 20 mg HS CARMEN Administration Clonidine 0.2 mg 11/23/19 22:00 11/28/19 21:40 Catapres - PO 0.2 mg HS CARMEN Administration Enoxaparin Sodium 40 mg 11/24/19 10:00 11/29/19 10:43 Lovenox - SQ 40 mg DAILY CARMEN Administration Furosemide 60 mg 11/24/19 22:00 11/29/19 14:55 Lasix - PO 60 mg BIDLASIX CARMEN Administration Insulin Aspart 1 vial 11/23/19 16:30 11/29/19 17:49 Novolog Vial Sliding Scale - SQ 2 units ACHS CARMEN Administration Protocol Metoprolol Succinate 50 mg 11/24/19 10:00 11/29/19 10:43 Toprol Xl - PO 50 mg DAILY CARMEN Administration Morphine Sulfate 2 mg 11/23/19 11:49 11/24/19 10:56 Morphine Sulfate SQ 2 mg Q6H PRN Administration PAIN LEVEL 7 - 10 Sohan-1-Pvlo Ethyl Esters 2 gm 11/24/19 10:00 11/29/19 10:47 Lovaza - PO Not Given DAILY CARMEN ASSESSMENT/PLAN: 84 year old female patient with past medical history of Diastolic CHF, HTN, HLD, and DM, who presented to the ED with a right hip fracture after her walker got caught and she fell. She is now POD 5 her cephalomedullary nail fixation surgery. 1. Right Hip Fracture s/p cephalomedullary nail fixation - The patient is waiting for a second COVID test to be negative so that she can be discharged 2. Normocytic anemia secondary to acute blood loss likely 2/2 surgery - resolved - hemoglobin is now 10.2 today - monitoring the Hgb - outpatient f/u 3. r/o UTI - Urine culture contaminated - patient denies any bladder symptoms such as dysuria - No further workup needed as patient is asymptomatic 4. Hx of HTN - diastolic blood pressure occasionally low, such as 119/56 today. - The patient is on metoprolol, amlodipine, and clonidine 5. Hx of HLD - The patient is on atorvastatin 6. Hx of DM - ISS - monitor bgm 7. Diastolic CHF - The patient is on lasix and metoprolol - currently stable # FEN - Regular diet - Monitor lytes DVT Px - Lovenox Dispo - awaiting COVID result pending auth Visit type - Emergency Visit Emergency Visit: Yes ED Registration Date: 11/22/19 Care time: The patient presented to the Emergency Department on the above date and was hospitalized for further evaluation of their emergent condition. - New Patient This patient is new to me today: Yes Date on this admission: 11/29/19 - Critical Care Critical Care patient: No - Discharge Referral Referred to [facility] Med P.C.: No ATTENDING PHYSICIAN STATEMENT I saw and evaluated the patient. I reviewed the resident's note and discussed the case with the resident. I agree with the resident's findings and plan as documented. SUBJECTIVE: OBJECTIVE: ASSESSMENT AND PLAN:
[2019-11-29] MEDS: ATORVASTATIN CA 20 MG TABLET (FP) PO SCH (21:44)
[2019-11-29] MEDS: cloNIDine HCL 0.1 MG TABLET PO SCH (21:44)
[2019-11-30] MEDS: FUROSEMIDE 40 MG TABLET (FP) PO SCH ×2 (06:08→14:28)
[2019-11-30] MEDS: INSULIN SLIDING SCALE (NOVOLOG) 1 VIAL SQ SCH ×4 (06:08→21:38)
[2019-11-30 08:39] LABS: HEMATOCRIT 30.9 % (32.4-45.2); HEMOGLOBIN 10.2 GM/dL (10.7-15.3); MCH 29.1 pg (25.7-33.7); MEAN CELL VOLUME 88.2 fl (80-96); MEAN PLT VOLUME 8.2 fl (7.5-11.1); PLATELET COUNT 372 K/MM3 (134-434); RDW 15.4 % (11.6-15.6); WHITE BLOOD COUNT 12.7 K/mm3 (4.0-10.0)
[2019-11-30 09:07] LABS: CALCIUM 8.3 mg/dL (8.5-10.1); CREATININE 0.9 mg/dL (0.55-1.3); MAGNESIUM 1.9 mg/dL (1.8-2.4); PHOSPHOROUS 3.4 mg/dL (2.5-4.9); POTASSIUM 3.3 mmol/L (3.5-5.1)
[2019-11-30] MEDS: OMEGA-3 ACID ETHYL ESTERS (FATTY-ACIDS) 1 GM CAPSULE (FP) PO SCH (09:29)
[2019-11-30] MEDS: amLODIPine BESYLATE 10 MG TABLET (FP) PO SCH (09:29)
[2019-11-30] MEDS: ENOXAPARIN NA (PORCINE) 40 MG/0.4 ML DISP.SYRIN SQ SCH (09:29)
--- NOTE | 2019-11-30 16:19 | PN ---
Progress Note (short form) - Note Progress Note: SUBJECTIVE: Seen and examined at bedside. She remains medically cleared for discharge.. Now pending negative COVID tests OBJECTIVE: Last Vital Signs Temp Pulse Resp BP Pulse Ox 98.1 F 86 18 157/60 95 11/30/19 06:00 11/30/19 10:00 11/30/19 10:00 11/30/19 10:00 11/29/19 21:00 PE: GEN: lying in bed, NAD HEENT: NC/AT BART RESP: CTAB CARDS: RRR, -MRG ABD: soft, nt/nd +BS NEURO: A&Ox3 Labs/Imaging: reviewed ASSESSMENT AND PLAN: 84 year old female with history of HTN, HLD, DM 2, Chronic Diastolic CHF, presented from OR s/p fall, found to have R Hip fracture. # Acute R Hip Fracture POD 3 s/p cephalomedullary nail fixation by Ortho ortho on board: appreciate recs DVT Px - Lovenox for 35 days as per Ortho PT Incentive Spirometry. #acute blood loss anemia -s/p 2 units # HTN -cont home mecds # HLD -cont statin # DM 2 -JG -restart home orals on dc # DINO: resolved DVT Px - Lovenox SQ Visit type - Emergency Visit Emergency Visit: Yes ED Registration Date: 11/22/19 Care time: The patient presented to the Emergency Department on the above date and was hospitalized for further evaluation of their emergent condition. - New Patient This patient is new to me today: No - Critical Care Critical Care patient: No
[2019-11-30] MEDS: ATORVASTATIN CA 20 MG TABLET (FP) PO SCH (21:37)
[2019-11-30] MEDS: cloNIDine HCL 0.1 MG TABLET PO SCH (21:37)
[2019-12-01] MEDS: FUROSEMIDE 40 MG TABLET (FP) PO SCH ×2 (05:41→13:46)
[2019-12-01] MEDS: INSULIN SLIDING SCALE (NOVOLOG) 1 VIAL SQ SCH ×4 (06:02→21:38)
[2019-12-01] MEDS: OMEGA-3 ACID ETHYL ESTERS (FATTY-ACIDS) 1 GM CAPSULE (FP) PO SCH (10:30)
[2019-12-01] MEDS: amLODIPine BESYLATE 10 MG TABLET (FP) PO SCH (10:31)
--- NOTE | 2019-12-01 14:01 | PN ---
Teaching Attending Note Name of Resident: Miguel Aguilar ATTENDING PHYSICIAN STATEMENT I saw and evaluated the patient. I reviewed the resident's note and discussed the case with the resident. I agree with the resident's findings and plan as documented. SUBJECTIVE: Seen and examined at bedside. She remains medically cleared for discharge. Dis po to STR likely tomorrow mornign OBJECTIVE: Last Vital Signs Temp Pulse Resp BP Pulse Ox 99.3 F 86 20 142/60 95 12/01/19 06:00 12/01/19 10:00 12/01/19 10:00 12/01/19 10:00 11/30/19 20:32 PE: GEN: lying in bed, NAD HEENT: NC/AT BART RESP: CTAB CARDS: RRR, -MRG ABD: soft, nt/nd +BS NEURO: A&Ox3 Labs/Imaging: reviewed ASSESSMENT AND PLAN: 84 year old female with history of HTN, HLD, DM 2, Chronic Diastolic CHF, presented from NH s/p fall, found to have R Hip fracture. # Acute R Hip Fracture POD 3 s/p cephalomedullary nail fixation by Ortho ortho on board: appreciate recs DVT Px - Lovenox for 35 days as per Ortho PT Incentive Spirometry. #acute blood loss anemia -s/p 2 units # HTN -cont home mecds # HLD -cont statin # DM 2 -JG -restart home orals on dc # DINO: resolved DVT Px - Lovenox SQ
--- NOTE | 2019-12-01 16:03 | PN ---
Physical Exam: SUBJECTIVE: Patient seen and examined at bedside. No acute events overnight. OBJECTIVE: Vital Signs Period Temp Pulse Resp BP Sys/Johnston Pulse Ox Last 24 Hr 98.9 F-99.3 F 77-97 18-20 131-142/57-72 95 GENERAL: NADs. HEAD: Normal with no signs of trauma. EYES: EOMI Sclera Clear LUNGS: Clear. HEART: RRR ABDOMEN: Soft, NDNT EXTREMITIES: No CCE. Surgical area clean and dry no signs of infection. Laboratory Results - last 24 hr 11/30/19 11/30/19 11/30/19 10:00 16:19 21:35 POC Glucometer 165 204 COVID-19 (HARVEY) Not detected 12/01/19 12/01/19 05:42 10:58 POC Glucometer 118 196 COVID-19 (HARVEY) Active Medications Generic Name Dose Route Start Last Admin Trade Name Freq PRN Reason Stop Dose Admin Acetaminophen 650 mg 11/27/19 22:03 11/27/19 22:48 Tylenol - PO 650 mg Q6H PRN Administration FEVER Amlodipine Besylate 10 mg 11/24/19 10:00 12/01/19 10:31 Norvasc - PO 10 mg DAILY CARMEN Administration Atorvastatin Calcium 20 mg 11/23/19 22:00 11/30/19 21:37 Lipitor - PO 20 mg HS CARMEN Administration Clonidine 0.2 mg 11/23/19 22:00 11/30/19 21:37 Catapres - PO 0.2 mg HS CARMEN Administration Furosemide 60 mg 11/24/19 22:00 12/01/19 13:46 Lasix - PO 60 mg BIDLASIX CARMEN Administration Insulin Aspart 1 vial 11/23/19 16:30 12/01/19 11:45 Novolog Vial Sliding Scale - SQ 2 units ACHS CARMEN Administration Protocol Metoprolol Succinate 50 mg 11/24/19 10:00 12/01/19 10:31 Toprol Xl - PO 50 mg DAILY CARMEN Administration Txzkq-1-Nvwj Ethyl Esters 2 gm 11/24/19 10:00 12/01/19 10:30 Lovaza - PO Not Given DAILY CARMEN ASSESSMENT/PLAN: 84 year old female patient with past medical history of Diastolic CHF, HTN, HLD, and DM, who presented to the ED with a right hip fracture after her walker got caught and she fell. She is now POD 5 her cephalomedullary nail fixation surgery. # Right Hip Fracture status post right hip cephalomedullary nail. POD #8. -Dr Jai brown appreciated. C/w Lovenox for 35 days and will remove jersey on day #14 as outpatient. #acute blood loss anemia - Most recent hemoglobin 10.2. S/p 2 U PRBC - outpatient f/u -CBC in am # Hx of HTN The patient is on metoprolol, amlodipine, and clonidine # Hx of HLD - atorvastatin # Hx of DM - ISS - monitor bgm # Diastolic CHF - lasix and metoprolol # FEN - No Fluids - Regular diet - Monitor lytes # DVT Px - Lovenox Dispo - SNF COVID PCR Negative Visit type - Emergency Visit Emergency Visit: Yes ED Registration Date: 11/22/19 Care time: The patient presented to the Emergency Department on the above date and was hospitalized for further evaluation of their emergent condition. - New Patient This patient is new to me today: No - Critical Care Critical Care patient: No - Discharge Referral Referred to [facility] Med P.C.: No ATTENDING PHYSICIAN STATEMENT I saw and evaluated the patient. I reviewed the resident's note and discussed the case with the resident. I agree with the resident's findings and plan as documented. SUBJECTIVE: OBJECTIVE: ASSESSMENT AND PLAN:
--- NOTE | 2019-12-01 16:21 | PN ---
Progress Note (short form) - Note Progress Note: ORTHOPEDIC SURGERY PROGRESS NOTE Department of Orthopedic Surgery SUBJECTIVE No acute events overnight. No complaints currently. Denies chest pain, shortness of breath, or calf pain. No nausea or vomiting. Tolerating oral intake. Pain controlled. Doing well with physical therapy. PHYSICAL EXAMINATION General: Alert, oriented, cooperative and no distress. Lower Extremity: Dressing intact; Incision clean and dry; Jersey intact. Skin intact, no lesions, rashes or ulcers noted. Muscle mass equal and symmetric to contralateral side. Compartments soft. No atrophy noted. No masses or effusions noted. No tenderness to palpation. EHL/TA/GS motor intact; SILT distally; 2+ DP pulses; Cap refill brisk. DVT Exam: No evidence of DVT seen on physical exam; No cords or calf tenderness; No significant calf/ankle edema. Intake & Output 11/29/19 11/30/19 12/01/19 23:59 23:59 23:59 Intake Total 280 1080 680 Balance 280 1080 680 Intake: Oral 280 1080 680 Other: Voiding Method Incontinent Incontinent Incontinent # Unmeasured Voids Void 3 1 1 Bowel Movement Yes No Yes # Bowel Movements 1 1 1 Weight 160 lb Height 5 ft 3 in Body Mass Index (BMI) 28.3 Active Medications Generic Name Dose Route Start Last Admin Trade Name Freq PRN Reason Stop Dose Admin Acetaminophen 650 mg 11/27/19 22:03 11/27/19 22:48 Tylenol - PO 650 mg Q6H PRN Administration FEVER Amlodipine Besylate 10 mg 11/24/19 10:00 12/01/19 10:31 Norvasc - PO 10 mg DAILY CARMEN Administration Atorvastatin Calcium 20 mg 11/23/19 22:00 11/30/19 21:37 Lipitor - PO 20 mg HS CARMEN Administration Clonidine 0.2 mg 11/23/19 22:00 11/30/19 21:37 Catapres - PO 0.2 mg HS CARMEN Administration Furosemide 60 mg 11/24/19 22:00 12/01/19 13:46 Lasix - PO 60 mg BIDLASIX CARMEN Administration Insulin Aspart 1 vial 11/23/19 16:30 12/01/19 11:45 Novolog Vial Sliding Scale - SQ 2 units ACHS CRAMEN Administration Protocol Metoprolol Succinate 50 mg 11/24/19 10:00 12/01/19 10:31 Toprol Xl - PO 50 mg DAILY CARMEN Administration Ukfkz-2-Kixr Ethyl Esters 2 gm 11/24/19 10:00 12/01/19 10:30 Lovaza - PO Not Given DAILY CARMEN Vital Signs (last) Temp Pulse Resp BP Pulse Ox 99.3 F 86 20 142/60 95 12/01/19 06:00 12/01/19 10:00 12/01/19 10:00 12/01/19 10:00 11/30/19 20:32 Laboratory (coagulation) PT with INR 14.50 SEC (9.7-13.0) H 11/22/19 13:55 Laboratory 11/30/19 07:08 11/30/19 07:08 ASSESSMENT AND PLAN Daniela Morrow is an 84 year old female status post right hip cephalomedullary nail. POD #8. Doing well. Hemodynamically stable. - Dressing changed today - PT/OT; Weightbearing as tolerated - DVT prophylaxis: SCDs, lovenox for chemoprophylaxis. Continue lovenox for 35 days postoperatively. - DC jersey POD #14 - Pain control: Transition to oral pain medications, minimize narcotic use - Ice/Elevation - Elevate HOB, encourage oral intake - Appreciate medical management (Nutrition optimization, decubitus precautions heel/sacrum) - Dispo planning The patient has a follow up appointment in our office on Saturday 12/16 at 9:30 AM [address] [place] [address]
[2019-12-01] MEDS ORDERED: INSULIN (NOVOLOG) ASPART 100 UNITS/ML 10ML VIAL ONE (20:46)
[2019-12-01] MEDS: ATORVASTATIN CA 20 MG TABLET (FP) PO SCH (21:37)
[2019-12-01] MEDS: cloNIDine HCL 0.1 MG TABLET PO SCH (21:37)
[2019-12-02] MEDS: FUROSEMIDE 40 MG TABLET (FP) PO SCH ×2 (06:23→13:36)
[2019-12-02] MEDS: INSULIN SLIDING SCALE (NOVOLOG) 1 VIAL SQ SCH ×3 (06:24→17:08)
[2019-12-02 08:35] LABS: HEMATOCRIT 29.6 % (32.4-45.2); MCH 29.8 pg (25.7-33.7); MCHC 33.8 g/dl (32.0-36.0); MEAN CELL VOLUME 88.3 fl (80-96); MEAN PLT VOLUME 7.8 fl (7.5-11.1); PLATELET COUNT 409 K/MM3 (134-434); RBC 3.35 M/mm3 (3.60-5.2); RDW 15.1 % (11.6-15.6); WHITE BLOOD COUNT 8.8 K/mm3 (4.0-10.0)
[2019-12-02 08:54] LABS: ALBUMIN 2.3 g/dl (3.4-5.0); BILIRUBIN,TOTAL 0.5 mg/dL (0.2-1); BLOOD UREA NITROGEN 33.5 mg/dL (7-18); CALCIUM 8.5 mg/dL (8.5-10.1); MAGNESIUM 1.9 mg/dL (1.8-2.4); PHOSPHOROUS 2.9 mg/dL (2.5-4.9); POTASSIUM 3.4 mmol/L (3.5-5.1); TOT PROT 5.8 g/dl (6.4-8.2)
[2019-12-02] MEDS ORDERED: POTASSIUM CHLORIDE TABS 20 MEQ TABLET.ER (FP) PO ONE (09:45)
[2019-12-02] MEDS: OMEGA-3 ACID ETHYL ESTERS (FATTY-ACIDS) 1 GM CAPSULE (FP) PO SCH (10:59)
[2019-12-02] MEDS: amLODIPine BESYLATE 10 MG TABLET (FP) PO SCH (10:59)
[2019-12-02] MEDS ORDERED: INSULIN (NOVOLOG) ASPART 100 UNITS/ML 10ML VIAL ONE ×2 (11:10→11:25)
--- NOTE | 2019-12-02 14:00 | PN ---
Teaching Attending Note Name of Resident: Odilon Melchor ATTENDING PHYSICIAN STATEMENT I saw and evaluated the patient. I reviewed the resident's note and discussed the case with the resident. I agree with the resident's findings and plan as documented. SUBJECTIVE: Seen and examined at bedside. Pt is medically cleared for dc to STR. OBJECTIVE: Last Vital Signs Temp Pulse Resp BP Pulse Ox 98.6 F 79 20 149/64 95 12/02/19 08:50 12/02/19 08:50 12/02/19 08:50 12/02/19 08:50 12/01/19 21:00 PE: per resident note Labs/Imaging: reviewed ASSESSMENT AND PLAN: 84 year old female with history of HTN, HLD, DM 2, Chronic Diastolic CHF, presented from NH s/p fall, found to have R Hip fracture.Patient underwent a cephalo-medullary nail fixation. Course was complicated by postoperative anemia and patient received 2 units PRBCs without complication and with good response. Patient is medically cleared for discharge on her home medications. She will be sent to to short-term rehab.
[2019-12-02 14:21] VITALS: BP 138/63; PULSE 80; TEMP 98
--- NOTE | 2019-12-02 15:46 | DS ---
Physical Exam: SUBJECTIVE: Patient seen and examined at bedside. The patient reports feeling well and is ready to go. The patient denies: fever/chills, dysuria, shortness of breath, cough, nausea/vomiting, and fatigue. The patient now has a COVID test on 11/29/19 that is negative and a COVID test on 11/30/19 that is negative. OBJECTIVE: Vital Signs Period Temp Pulse Resp BP Sys/Johnston Pulse Ox Last 24 Hr 98.0 F-98.8 F 74-100 18-20 114-149/52-73 95-97 PHYSICAL EXAM GENERAL: The patient is awake, alert, and fully oriented, in no acute distress. HEAD: Normal with no signs of trauma. EYES: Extraocular movements intact. ENT: Ears normal, nares patent, oropharynx clear without exudates, moist mucous membranes. NECK: Trachea midline, full range of motion, supple. LUNGS: Breath sounds equal, clear to auscultation bilaterally, no wheezes, no crackles, no accessory muscle use. HEART: Regular rate and rhythm, S1, S2 without murmur, rub or gallop. ABDOMEN: Soft, nontender, nondistended, normoactive bowel sounds, no guarding, no rebound, no masses. EXTREMITIES: 2+ pulses, warm, well-perfused, no edema. NEUROLOGICAL: Normal speech, gait not observed. PSYCH: Normal mood, normal affect. SKIN: Warm, dry, normal turgor, no rashes or lesions noted. LABS Laboratory Results - last 24 hr 12/01/19 12/01/19 12/02/19 16:07 20:50 05:52 WBC RBC Hgb Hct MCV MCH MCHC RDW Plt Count MPV Sodium Potassium Chloride Carbon Dioxide Anion Gap BUN Creatinine Est GFR (CKD-EPI)AfAm Est GFR (CKD-EPI)NonAf POC Glucometer 208 184 141 Random Glucose Calcium Phosphorus Magnesium Total Bilirubin AST ALT Alkaline Phosphatase Total Protein Albumin 12/02/19 12/02/19 12/02/19 07:36 07:36 11:23 WBC 8.8 RBC 3.35 L Hgb 10.0 L Hct 29.6 L MCV 88.3 MCH 29.8 MCHC 33.8 RDW 15.1 Plt Count 409 MPV 7.8 Sodium 138 Potassium 3.4 L Chloride 96 L Carbon Dioxide 34 H Anion Gap 9 BUN 33.5 H Creatinine 1.0 Est GFR (CKD-EPI)AfAm 60.33 Est GFR (CKD-EPI)NonAf 52.06 POC Glucometer 240 Random Glucose 123 H Calcium 8.5 Phosphorus 2.9 Magnesium 1.9 Total Bilirubin 0.5 AST 22 ALT 14 Alkaline Phosphatase 104 Total Protein 5.8 L Albumin 2.3 L HOSPITAL COURSE: Date of Admission:11/22/19 84 year old female patient with past medical history of diastolic CHF, HTN, HLD, DM, who presented to the ED due to a right hip fracture after her walker got caught on something and she fell. She denied hitting her head in the fall. The patient underwent a cephalomedullary nail fixation surgery on 11/22. Following the surgery, the patient was found to have normocytic anemia secondary to blood loss from the surgery and received 2 units of pRBC without complication and with good response and resolution of her normocytic anemia. Patient is medically cleared for discharge on her home medications. She is being sent to short-term rehab. Date of Discharge: 12/02/19 Minutes to complete discharge: 37 Discharge Summary Problems reviewed: Yes Reason For Visit: FRACTURE OF RIGHT HIP Condition: Good - Instructions Diet, Activity, Other Instructions: You were admitted to the hospital after a fall. You were evaluated with blood work, lab work, and imaging including CAT scans and x rays. Your evaluation showed a right hip fracture and you underwent surgery for repair of your hip. While in the hospital, your blood concentration was low possibly from the surgery you underwent, however after 2 rounds of blood transfusion your blood concentration returned to normal. Medications To complete your treatment, please take the following medications: Lovenox for 26 more days from 12/02 until 12/27 to complete a total of 35 days after surgery, in order to help prevent blood clots until reassessed by your surgeon. If you continue to have pain, you can take Motrin over the counter as need for pain. Please ensure you keep your surgical site clean and dry. Please continue to Ice and elevate your leg as needed. Follow ups Please take all of your medications as prescribed Please follow up with your primary care physician, or the one we have provided for you Dr. Jazmin Yanes, within 1 week Please follow up with Dr. Yariel Vergara on Saturday 12/16 at 9:30 AM check your wound and for repeat x-rays. If you have any worsening symptoms, chest pain, shortness of breath, abdominal pain, or any worsening of your condition, please go to the emergency room. Referrals: Yariel Vergara DO [Staff Physician] - 2 Weeks () Jazmin Yanes MD [Staff Physician] - 1 Week Disposition: HOME - Home Medications Comprehensive Discharge Medication List: Ambulatory Orders Aspirin 81 mg PO DAILY 11/22/19 Calcium Carbonate [Calcium] 600 mg PO DAILY 11/22/19 Clonidine HCl 0.1 mg PO DAILY 11/22/19 Clonidine HCl 0.2 mg PO HS 11/22/19 Exenatide [Byetta [Non-Formulary] -] 20 mcg SQ DAILY 11/22/19 Furosemide 60 mg PO BID 11/22/19 Metoprolol Succinate 50 mg PO BID 11/22/19 Multivit-Min/FA/Lycopen/Lutein [Centrum Silver Tablet] 1 tab PO DAILY 11/22/19 Winona-3 Fatty Acids [Winona-3] 2,000 mg PO DAILY 11/22/19 Pioglitazone HCl 30 mg PO DAILY 11/22/19 Simvastatin 20 mg PO HS 11/22/19 Amlodipine Besylate [Norvasc -] 10 mg PO DAILY 11/25/19 Enoxaparin [Lovenox -] 40 mg SQ DAILY 26 Days #26 disp.syrin 12/02/19 This patient is new to me today: No Emergency Visit: Yes ED Registration Date: 11/22/19 Care time: The patient presented to the Emergency Department on the above date and was hospitalized for further evaluation of their emergent condition. Critical Care patient: No - Discharge Referral Referred to [facility] Med P.C.: No ATTENDING PHYSICIAN STATEMENT I saw and evaluated the patient. I reviewed the resident's note and discussed the case with the resident. I agree with the resident's findings and plan as documented. SUBJECTIVE: OBJECTIVE: ASSESSMENT AND PLAN:
== END 2019-12-02 18:12 | disposition home or self-care (01) | DRG 481 ==
LOC: JER 12:26 → JERBED 16:05 → J6S 23:08
PROVIDERS: ADMIT Internal Medicine; ATTEND Internal Medicine
PROC: 0QS606Z Reposition Right Upper Femur with Intramedullary Internal Fixation Device, Open Approach (ICD-10-PCS; principal; 2019-11-23 08:00)
PROC: 30233N1 Transfusion of Nonautologous Red Blood Cells into Peripheral Vein, Percutaneous Approach (ICD-10-PCS; 2019-11-26)
DX: S72.141A Displaced intertrochanteric fracture of right femur, initial encounter for closed fracture (principal); N17.9 Acute kidney failure, unspecified; I50.32 Chronic diastolic (congestive) heart failure; D62 Acute posthemorrhagic anemia; W01.0XXA Fall on same level from slipping, tripping and stumbling without subsequent striking against object, initial encounter; Y92.098 Other place in other non-institutional residence as the place of occurrence of the external cause; I11.0 Hypertensive heart disease with heart failure; E78.5 Hyperlipidemia, unspecified; E11.9 Type 2 diabetes mellitus without complications; I44.0 Atrioventricular block, first degree
CPT/HCPCS: 36415; 36430; 36511; 70450-TC; 71045-TC-FY; 72125-TC; 73502-TC-RT-FY; 73523-TC-FY; 73552-TC-RT-FY; 76000-TC-FY; 80048; 80053; 81003; 82962; 83735; 84100; 85025; 85027; 85610; 85730; 86850; 86900; 86901; 86922; 87086; 93971-TC; 94760; 97116-GP; 97161-GP; 99285-25; J0131; J0735; J1644; P9038; P9058; U0003